=== PATIENT | female | born 1965 | race Caucasian/White ===

== ENCOUNTER 2023-04-05 10:56 | Outpatient (AMB) | payer OTHER, SELFPAY ==
--- NOTE | 2023-04-05 10:57 | A.OFFVIS_ITS ---
Intake Vital Signs 04/05/23 11:00 Weight 246 lb 7.629 oz BP 146/82 H Blood Pressure Location Lt brachial Position Sitting Pulse 88 Pulse Source Pulse Oximeter Intake Visit Reasons: DM2 Intake Note: New patient present today for Diabetes Mellitus. Previously managed by PCP. Last Diabetic Eye exam: 08/1021 Last Podiatry Visit: 03/2023 Random Glucose: 192mg/dl HgA1C: 8.7% Gasoline Attendant Required: No Accompanied by: Self / Same As Patient Allergies gluten Adverse Reaction (Unknown, Verified 04/05/23 11:02) Diarrhea, stomach bloating Medication List - Last Reconciled 04/05/23 by Donald Goldstein MD atorvastatin 20 mg PO DAILY cholecalciferol (vitamin D3) 50,000 mcg PO .week glimepiride 2 mg PO DAILY insulin glargine (Lantus Solostar U-100 Insulin) 52 units subcut BID metformin 1,000 mg PO BID valsartan 320 mg PO DAILY HPI HPI Comments History of Present Illness Details 57 YO F who is seen in consultation for T2DM at the request of PCP. Initially diagnosed with T2DM in 7 yrs . Saw endo at [facility] Dr. Cook Was initially started on treatment with metformin .Took Trulicity and had diaarhea Current regimen . metformin 1000 mg BID Victoza ran out of prescription glimeprimide 2mg BID Lantus 52 units Humalog correctiion scale 3 X/day Was unable to download glucometer but point cares are being checked twice a day with generally point cares in the high 100s to mid 200s in the morning and mid 200s to mid 300s in the evening Reports low sugars No . Most recent A1C 8.7 , Family history of T2DM in brother and grandmother . Has eyes checked yearly, last eye exam 08/2021 needs appt , denies retinopathy. Denies neuropathy, sees podiatry. Denies nephropathy, on ALEXANDRA/ARB. Has HLD, on statin. Denies CAD. Not Had diabetes education. [facility] Medical History (Updated 04/05/23 @ 11:11 by Donald Goldstein MD) Uncontrolled type 2 diabetes mellitus with hyperglycemia Surgical History (Updated 04/02/23 @ 10:46 by SERA Davis) History of colonoscopy Hx of surgical fusion joint Family History (Updated 04/02/23 @ 11:02 by SERA Davis) Mother Hypothyroidism Father Murmur Pacemaker Social History (Updated 04/02/23 @ 11:03 by SERA Davis) Alcohol intake: current Alcohol intake frequency: holidays/special occasions only Patient Tobacco Use Status: Former Tobacco user Quit Date: 05/15/2021 Physical Exam Absence of Cushingoid features. Absence of acromegalic features. Neck exam reveals nl size thyroid about 15 gms. No thyroid nodules palpable. No carotid bruits present. Lungs CTA. Heart S1 S2, Reg R/R. No M/R/ G. Skin exam reveals absence of vitiligo or acanthosis nigricans. Abdominal exam reveals Soft NT/ND with NA BS. No organomegaly present. Neck Other: . Extrem Other: Visual exam of foot performed. No ulcerations or open lesions. No onchomycosis, no callouses.Pulses 2 + distally Sensation intact to monofilament exam. Vibratory sensation sensed is intact with 128 Hz tuning fork Results AMB Hemoglobin A1c AMB Hemoglobin A1c 8.7 % Last Edit by Lesia Robbins on 04/05/23 11:24 Assessment & Plan Assessment & Plan (1) Uncontrolled type 2 diabetes mellitus with hyperglycemia: Code(s): E11.65 - Type 2 diabetes mellitus with hyperglycemia Plan: Is a 57-year-old white female with a history of type 2 diabetes being treated with metformin, glimepiride and basal insulin with poor glycemic control and no known microvascular or macrovascular complications. Plan is to have the patient check her point cares pre and post meals. Will try to prescribe a Nicole 3 patient as pt uses 4 injections of insulin per day. Will start Mounjaro 2.5 mg with titration of doses patient tolerates. Patient has already tried and failed Victoza and Trulickaley told patient to report any hypoglycemia so we can adjust her glimepiride and insulin.. Will set up appointment with crane operator cab and desktop analyst. Went over the relationship of poor glycemic control to development of progression of complications Mounjaro 2.5 mg samples given to patient lot number [id number] expiration date 08/30/2024 Orders: Orders AMB Hemoglobin A1c Today E11.65 - Type 2 diabetes mellitus with hyperglycemia Referrals Diabetes Education Referral E11.65 - Type 2 diabetes mellitus with hyperglycemia Nutrition/Dietitian Referral E11.65 - Type 2 diabetes mellitus with hyperglycemia Medications: New blood-glucose sensor (FreeStyle Nicole 3 Sensor device) As directed change every 14 days 2 ea 5RF tirzepatide (Mounjaro) 5 mg (0.5 mL) subcut QWEEK 2 mL 5RF Coding Level of Care Code New Pt Level 5 (89167) Diagnoses Uncontrolled type 2 diabetes mellitus with hyperglycemia E11.65 Time Spent (min) 60 Comment Total of 60 minutes was spent reviewing chart, seeing patient, and dictating
[2023-04-05 11:00] VITALS: BP 146/82; PULSE 88
[2023-04-05 11:19] LABS: Glucose, Whole Blood 192 mg/dL (60-115)
== END 2023-04-05 12:11 | disposition home or self-care (01) ==
PROVIDERS: PCP Nurse Practitioner Adult Health; Referring Provider Nurse Practitioner Adult Health; Visit Provider Internal Medicine Endocrinology, Diabetes & Metabolism
DX: E11.65 Type 2 diabetes mellitus with hyperglycemia (principal)
CPT/HCPCS: 99205

== ENCOUNTER → 2023-04-05 10:56 | Outpatient (BNVA) | payer OTHER, SELFPAY | PROVIDERS: Visit Provider Internal Medicine Endocrinology, Diabetes & Metabolism | DX: E11.65 Type 2 diabetes mellitus with hyperglycemia (principal); Z83.3 Family history of diabetes mellitus; Z79.4 Long term (current) use of insulin; E78.5 Hyperlipidemia, unspecified; Z79.899 Other long term (current) drug therapy | CPT/HCPCS: 82947; 83036 ==

== ENCOUNTER 2023-04-20 08:21 | Outpatient (AMB) | payer OTHER, SELFPAY ==
--- NOTE | 2023-04-20 09:23 | MHC.AMDMED ---
Intake Intake Visit Reasons: f/u Type 2 DM Emergency Medical Service Manager Required: No Accompanied by: Self / Same As Patient Allergies gluten Adverse Reaction (Unknown, Verified 04/05/23 11:02) Diarrhea, stomach bloating HPI Comprehensive Diabetes Asmnt Most Recent Diabetes Results: No Data to Display [facility] Medical History (Updated 04/05/23 @ 11:11 by Donald Goldstein MD) Uncontrolled type 2 diabetes mellitus with hyperglycemia Surgical History History of colonoscopy Hx of surgical fusion joint Family History Mother Hypothyroidism Father Murmur Pacemaker Social History Alcohol intake: current Alcohol intake frequency: holidays/special occasions only Patient Tobacco Use Status: Former Tobacco user Quit Date: 05/15/2021 Assessment & Plan Assessment & Plan (1) Uncontrolled type 2 diabetes mellitus with hyperglycemia: Code(s): E11.65 - Type 2 diabetes mellitus with hyperglycemia Plan: Diabetes self-management education and support participation record Assessment/scale: 1= needs instructed? 2= needs review? 3= comprehend keep point? 4= demonstrates understanding/ competent? NC= Not Covered Topics Learning Objective: Initial visit Initial or post srvc Initial or post srvc Initial or post srvc Initial or post srvc Initial or post srvc Post srvc Comments Pre Edu-assessment/plan Outcome or reassess Outcome or reassess Outcome or reassess Outcome or reassess Outcome or reassess Outcome or reassess Diabetes pathophysiology 1 Healthy eating 2 Pt is Gluten free Being active Taking medication 1 Monitoring glucose 2 Acute complication Chronic complicated Lifestyle and healthy coping Diabetes distress in support ?Diabetes pathophysiology: ?Defined diabetes med identify own type of diabetes; list 3 options for treating diabetes Healthy eating: ?Described effect of type, amount and ?timing of food on blood glucose; list 3 methods for planning meal Being active: ?State effect of exercise on blood glucose level Taking medication: ?State effect of diabetes medications on diabetes; name diabetes medications taking, action and side effects Monitoring glucose: ?Identify recommended blood glucose targets and personal target Acute complication: ?List symptoms and treatment of hyper and hypoglycemia, DKA, sick day guidelines and guidelines for severe weather or situations of crisis and diabetes supply manage Chronic complication: ?To find the relationship of blood glucose levels to long-term complications of diabetes in screening and preventative measures Lifestyle and healthy coping: ?Described lifestyle and healthy coping strategies to rule out diabetes self-management Diabetes to stress and support: ?Recognize Diabetes to stress and be able to identified support options Learning objectives: The patient was provided with verbal and written education on the following topics as outlined below. The patient met all learning objectives and was able to verbalize understanding and provide teach back of education topics discussed . The patient was provided with the opportunity to ask questions and all questions were answered. Patient Assessment Assess patient education level/literacy/barriers Patient questions/concerns, patient diagnosed with type 2 diabetes 2015. Last A1c 8.7% on 04/05/2023. What is Diabetes? Pathophysiology How the body produces and uses insulin Identify type of DM Risk factors Signs of Diabetes Brief overview of Diabetes Management Monitoring blood sugar Following a meal plan Regular exercise Maintaining a healthy weight Taking medication as needed Members of the care team (PCP, RN, MA, RD, CDE, umbrella tipper machine) Blood glucose monitoring When/how often to test Target blood sugar ranges Patient using Nicole 3 sensor Average glucose for the past 2 weeks 165 mg/dL 33% above target 66% at target 1% below target Introduction to Nutrition Importance of healthy diet in managing DM Diet is personalized to individual preference Review patient?s regular diet/food preferences Who prepares meals/does food shopping/ Dining out?/ Barriers? How diet effects glucose Eating 3 balanced meals a day with small, healthy snacks between meals Review food groups Carbohydrates: What is a carbohydrate/Which food/food groups are considered carbohydrates Effect of carbohydrates on blood glucose Portion sizes Reading food labels Basic carb counting (if applicable per nursing assessment) Plate method Meal planning Recommendations: Follow plate method, consistent carbs and read nutritional labels. Smart Goal: Patient will keep meals 30-45 g of carbohydrate Educational Materials: The patient was provided with the following written educational materials: Planning Healthy Meals Handout Patient Response to instructions: Comprehension of Instructions: good Readiness to make changes: Contemplation How confident they feel about making changes: Positive . Patient Instructions: Test blood sugar as directed; Fasting and 2hpp largest meal. Watch trends in results. Utilize results and to assess how food, physical activity and medications affect blood sugar results. Bring glucometer or CGM to next visit. Be knowledgeable about diabetes medication, its action, side effects, efficacy, toxicity, prescribed dosage, appropriate timing and frequency of administration, effect of missed and delayed doses and instructions for storage, travel and safety. Patient will be participating in Diabetes Education classes Coding Level of Care Code Est Pt Level 1 (59670) Diagnoses Uncontrolled type 2 diabetes mellitus with hyperglycemia E11.65
== END 2023-04-20 10:43 | disposition home or self-care (01) ==
PROVIDERS: PCP Nurse Practitioner Adult Health; Visit Provider Registered Nurse Diabetes Educator
DX: E11.65 Type 2 diabetes mellitus with hyperglycemia (principal)

== ENCOUNTER → 2023-04-20 08:21 | Outpatient (BNVA) | payer OTHER, SELFPAY | PROVIDERS: PCP Nurse Practitioner Adult Health; Visit Provider Registered Nurse Diabetes Educator | DX: E11.65 Type 2 diabetes mellitus with hyperglycemia (principal) | CPT/HCPCS: 99211 ==

== ENCOUNTER 2023-05-03 09:15 | Outpatient (AMB) | payer OTHER, SELFPAY ==
--- NOTE | 2023-05-03 12:28 | A.OFFVIS_ITS ---
Intake Intake Visit Reasons: dm Allergies gluten Adverse Reaction (Unknown, Verified 04/05/23 11:02) Diarrhea, stomach bloating HPI Comprehensive Diabetes Asmnt Most Recent Diabetes Results: No Data to Display [facility] Medical History (Updated 04/05/23 @ 11:11 by Donald Goldstein MD) Uncontrolled type 2 diabetes mellitus with hyperglycemia Surgical History History of colonoscopy Hx of surgical fusion joint Family History Mother Hypothyroidism Father Murmur Pacemaker Social History Alcohol intake: current Alcohol intake frequency: holidays/special occasions only Patient Tobacco Use Status: Former Tobacco user Quit Date: 05/15/2021 Assessment & Plan Assessment & Plan (1) Uncontrolled type 2 diabetes mellitus with hyperglycemia: Code(s): E11.65 - Type 2 diabetes mellitus with hyperglycemia Plan: Class 1 DIABETES: CLASS? Your Journey with Diabetes ? Pre and Post class survey Your Journey with Diabetes ? 1=I needs full instruction?? 2= I Need Some Review? 3= I Understand Topics?? Before Class After Class 1-2 What is diabetes? Can you define in your own words 3 1-2 Blood glucose within the target range 3 2 The potential long-term complications of diabetes 3 2 Reduce the risk of long-term complications by keeping your blood glucose on target 3 2 Knowing your ABCs 3 2 Identifying Support Network 3 Patient was education on the prevention of and monitoring of potential complications of diabetes. Topics covered in today?s session included: . Definition of types of Diabetes ? Natural course of diabetes. ? Detecting and prevention of chronic complications. ? Knowing ABC's of diabetes management and reducing risk for cardiovascular complications. ? Reviewed support network and services. Patient was supplied with CDC ABC checklist Patient was receptive to information provided and participated in the group discussion. Patient asked?appropriate questions and demonstrated good understanding of the topics discussed.? Reviewed how to create smart goal, patient will follow-up with new smart goal at next class Patient was educated on diabetes care and skills according to the Standards of Care established by the [place] [employer] Coding Level of Care Code Tele Est Pt Level 1 (83640) Diagnoses Uncontrolled type 2 diabetes mellitus with hyperglycemia E11.65
== END 2023-05-03 12:58 | disposition home or self-care (01) ==
PROVIDERS: PCP Nurse Practitioner Adult Health; Visit Provider Registered Nurse Diabetes Educator
DX: E11.65 Type 2 diabetes mellitus with hyperglycemia (principal)
CPT/HCPCS: 99211

== ENCOUNTER → 2023-05-03 09:15 | Outpatient (BNVA) | payer OTHER, SELFPAY | PROVIDERS: PCP Nurse Practitioner Adult Health; Visit Provider Registered Nurse Diabetes Educator ==

== ENCOUNTER 2023-05-10 09:28 | Outpatient (AMB) | payer OTHER, SELFPAY ==
--- NOTE | 2023-05-10 11:12 | A.OFFVIS_ITS ---
Intake Intake Visit Reasons: dm/lvm Allergies gluten Adverse Reaction (Unknown, Verified 04/05/23 11:02) Diarrhea, stomach bloating HPI Nutrition Presentation Details Pt presented for MNT Group Education for T2DM. Most Recent Diabetes Results: No Data to Display [facility] Medical History (Updated 04/05/23 @ 11:11 by Donald Goldstein MD) Uncontrolled type 2 diabetes mellitus with hyperglycemia Surgical History History of colonoscopy Hx of surgical fusion joint Family History Mother Hypothyroidism Father Murmur Pacemaker Social History Alcohol intake: current Alcohol intake frequency: holidays/special occasions only Patient Tobacco Use Status: Former Tobacco user Quit Date: 05/15/2021 Assessment & Plan Assessment & Plan (1) Uncontrolled type 2 diabetes mellitus with hyperglycemia: Code(s): E11.65 - Type 2 diabetes mellitus with hyperglycemia Plan: Pt presented for MNT DM Group Education. Pt participated with questions relevant to the topics discussed. Pt needs individual visits related to food allergies and discuss individual meal planning. Class 2: Diabetes and Healthy Eating Assessment Diabetes and Healthy Eating 1=I needs full instruction ? 2= I Need Some Review? 3= I Understand Topics??? Before Class After Class 1-2 The relationship between your blood glucose and the food you eat 2-3 1-2 The nutrients that make up food 3 1-2 How what you eat, portion size, and when you eat can affect your blood glucose 3 1-2 Healthy eating and meal planning strategies 3 1-2 How the feelings you have can influence your choices about food and eating 3 1-2 How to select and implement SMART Goal 3 SMART Goal selected: healthy eating follow healthy plate method at dinner 3 times w week Patient Instructions: Nutrition education topics discussed were as followed: * Described the healthy plate method, purpose of the healthy plate method. * Role of carbohydrates, fiber,protein and nonstarchy vegetables in relation to blood glucose and overall health * Carbohydrate sources of foods and amount of carbohydrates per serving size * Relationship of carbohydrates to blood glucose * Food sources of protein and low-fat sources of protein * Differences between starchy vegetables and non starchy vegetables and how to incorporate this following the healthy plate method Written information with above topics and meal planning ideas were provided for reference. Pt will meet individually for additional questions in meal planning and discuss food allergies Coding Level of Care Code Nutr Indiv Intake (32312) Diagnoses Uncontrolled type 2 diabetes mellitus with hyperglycemia E11.65 Time Spent (min) 120 Comment This was group education for DM /MNT [id number]
== END 2023-05-10 11:06 | disposition home or self-care (01) ==
PROVIDERS: PCP Nurse Practitioner Adult Health; Visit Provider Dietitian, Registered
DX: E11.65 Type 2 diabetes mellitus with hyperglycemia (principal)

== ENCOUNTER → 2023-05-10 09:28 | Outpatient (BNVA) | payer OTHER, SELFPAY | PROVIDERS: PCP Nurse Practitioner Adult Health; Visit Provider Dietitian, Registered | DX: E11.65 Type 2 diabetes mellitus with hyperglycemia (principal); Z71.3 Dietary counseling and surveillance | CPT/HCPCS: 97802 ==

== ENCOUNTER 2023-06-05 15:17 | Outpatient (AMB) | payer OTHER, SELFPAY ==
[2023-06-05 15:26] VITALS: BP 106/70; PULSE 122; BMI 44.8
--- NOTE | 2023-06-05 15:26 | MHC.OFFVIS ---
Intake Vital Signs 06/05/23 15:26 06/05/23 15:29 Height 5 ft 2 in 5 ft 2 in Weight 245 lb 2.464 oz BMI 44.8 BP 106/70 Blood Pressure Location Lt brachial Position Sitting Pulse 122 H Pulse Source Pulse Oximeter Intake Visit Reasons: f/u Type 2 DM, appt confirmed Intake Note: Patient present today to follow up on Type 2 Diabetes Mellitus. Patient receives DME supplies through: Pharmacy Last Diabetic Eye exam: 2021 Last Podiatry Visit: 02/2023 Random Glucose: 155 mg/dl HgA1C: 8.7% 04/05/2023 Salesperson Wigs Required: No Accompanied by: Self / Same As Patient Allergies gluten Adverse Reaction (Unknown, Verified 06/05/23 15:33) Diarrhea, stomach bloating Medication List - Last Reconciled 06/05/23 by Donald Goldstein MD atorvastatin 20 mg PO DAILY blood-glucose sensor (FreeStyle Nicole 3 Sensor device) As directed change every 14 days cholecalciferol (vitamin D3) 50,000 mcg PO .week glimepiride 2 mg PO DAILY insulin glargine (Lantus Solostar U-100 Insulin) 52 units subcut BID metformin 1,000 mg PO BID semaglutide (Ozempic) 0.25 mg (0.368 mL) subcut QWEEK valsartan 320 mg PO DAILY HPI HPI Comments History of Present Illness Details 57 YO F who is seen in consultation for T2DM at the request of PCP. Initially diagnosed with T2DM in 7 yrs . Saw navi at [facility] Dr. Cook Was initially started on treatment with metformin .Took Trulicity and had diaarhea Current regimen . metformin 1000 mg BID Ozempic 0.25 mg Qwkly couldn't tolerate Taking Mounjaro 2.5 mg qwkly glimeprimide 2mg QD Lantus 50 units Humalog correctiion scale 3 X/day Nicole download shows she is using the sensor 98% of the time. Average glucose is 158 with G mi of 7.1% and variability of 24.4% glucose is in target range 74% of the time with 26% hyperglycemia and no hypoglycemia Reports low sugars rarely . Most recent A1C 8.7 , Family history of T2DM in brother and grandmother . Has eyes checked yearly, last eye exam needs appt , denies retinopathy. Denies neuropathy, sees podiatry. Denies nephropathy, on ALEXANDRA/ARB. Has HLD, on statin. Denies CAD. Not Had diabetes education. REPLACED BY [facility] Medical History (Updated 04/05/23 @ 11:11 by Donald Goldstein MD) Uncontrolled type 2 diabetes mellitus with hyperglycemia Surgical History Hx of surgical fusion joint History of colonoscopy Family History Mother Hypothyroidism Father Murmur Pacemaker Social History Alcohol intake: current Alcohol intake frequency: holidays/special occasions only Patient Tobacco Use Status: Former Tobacco user Quit Date: 05/15/2021 Physical Exam Vital Signs: Last Vital Signs Pulse 122 H 06/05/23 15:26 BP 106/70 06/05/23 15:26 BMI result Body Mass Index 44.8 Absence of Cushingoid features. Absence of acromegalic features. Neck exam reveals nl size thyroid about 15 gms. No thyroid nodules palpable. No carotid bruits present. Lungs CTA. Heart S1 S2, Reg R/R. No M/R/ G. Skin exam reveals absence of vitiligo or acanthosis nigricans. Abdominal exam reveals Soft NT/ND with NA BS. No organomegaly present. Neck Other: . Extrem Other: Visual exam of foot performed. No ulcerations or open lesions. No onchomycosis, no callouses.Pulses 2 + distally Sensation intact to monofilament exam. Vibratory sensation sensed is intact with 128 Hz tuning fork Results Reviewed Results Reviewed: 06/05/23 15:34 Glucose, Whole Blood Routine Laboratory Last Values Glucose (Clinic) 155 mg/dL (60-115) H 06/05/23 15:34 Assessment & Plan Assessment & Plan (1) Uncontrolled type 2 diabetes mellitus with hyperglycemia: Code(s): E11.65 - Type 2 diabetes mellitus with hyperglycemia Plan: Is a 57-year-old white female with a history of type 2 diabetes being treated with metformin, Ozempic, glimepiride and basal insulin with improved good glycemic control and no known microvascular or macrovascular complications. Plan is to start Mounjaro 2.5 mg Qwkly and titrate as tolerated. Patient could not tolerate 3 G LP s including Victoza, Trulicity and Ozempic. She should follow-up with the neurology teacher. She should also report any hypoglycemia for adjustment of insulin. Will also have patient stop glimepiride Mounjaro 2.5 mg samples given to patient lot number [id number] expiration 08/31/2024 Medications: New tirzepatide (Mounjaro) 5 mg (0.5 mL) subcut QWEEK 2 mL 4RF Discontinued semaglutide (Ozempic) for 4 weeks Discontinued Reason: Doctor's Order 0.25 mg (0.368 mL) subcut QWEEK 3 mL 4RF Coding Level of Care Code Est Pt Level 4 (69929) Diagnoses Uncontrolled type 2 diabetes mellitus with hyperglycemia E11.65
== END 2023-06-05 16:08 | disposition home or self-care (01) ==
PROVIDERS: PCP Nurse Practitioner Adult Health; Visit Provider Internal Medicine Endocrinology, Diabetes & Metabolism
DX: E11.65 Type 2 diabetes mellitus with hyperglycemia (principal)
CPT/HCPCS: 99214

== ENCOUNTER → 2023-06-05 15:17 | Outpatient (BNVA) | payer OTHER, SELFPAY | PROVIDERS: PCP Nurse Practitioner Adult Health; Visit Provider Internal Medicine Endocrinology, Diabetes & Metabolism | DX: E11.65 Type 2 diabetes mellitus with hyperglycemia (principal); Z79.4 Long term (current) use of insulin | CPT/HCPCS: 82947 ==

== ENCOUNTER 2023-06-12 13:02 | Outpatient (AMB) | payer OTHER, SELFPAY ==
[2023-06-12 13:47] VITALS: BP 132/80; PULSE 92; TEMP 36.8; O2SAT 96; BMI 45.2
--- NOTE | 2023-06-12 13:47 | MHC.OFFWIV ---
Intake Vital Signs 06/12/23 13:47 Height 5 ft 2 in Weight 247 lb BMI 45.2 BP 132/80 Blood Pressure Location Rt brachial Position Sitting Pulse 92 Pulse Source Pulse Oximeter Temp 98.3 F Temp Source Temporal Artery Scan Pulse Oximetry (%) 96 Intake Visit Reasons: BED TEACHER Sore Throat, Cough, Nasal Drip (masked) Intake Note: pt is here for c/o sore throat, post nasal drip and cough Patient Tobacco Use Status: Former Tobacco user Quit Date: 05/15/2021 Allergies gluten Adverse Reaction (Unknown, Verified 06/12/23 13:47) Diarrhea, stomach bloating Do you need a note to return to daycare/school/sports/work: Yes HPI HPI Comments History of Present Illness Details This is a 57-year-old female with a past medical history of insulin-dependent diabetes, hypertension, hyperlipidemia and seasonal allergies not currently treated presenting for evaluation of a scratchy throat, sinus pressure and chills that she has had for the past 4 days. Patient denies having any hyperglycemia, fevers, chills, ear pain, dental pain, cough or shortness of breath. Patient has not taken any medication for treatment of her symptoms. [facility] Medical History Uncontrolled type 2 diabetes mellitus with hyperglycemia Surgical History Hx of surgical fusion joint History of colonoscopy Family History Mother Hypothyroidism Father Murmur Pacemaker Social History Alcohol intake: current Alcohol intake frequency: holidays/special occasions only Patient Tobacco Use Status: Former Tobacco user Quit Date: 05/15/2021 Review of Systems Const Denies body aches, Denies chills, Denies fatigue, Denies fever(s), Reports lethargy and Denies malaise Eyes Reports no additional complaints ENT Denies otalgia, Denies nasal congestion, Denies sinus pain and Reports sore throat Card Reports no additional complaints Resp Reports no additional complaints Musc Reports no additional complaints Endo Reports no additional complaints and Denies fatigue Mike/Lymph Reports no additional complaints Physical Exam Vital Signs: Last Vital Signs Temp 98.3 F 06/12/23 13:47 Pulse 92 10/17/23 13:47 BP 132/80 06/12/23 13:47 Pulse Ox 96 06/12/23 13:47 BMI result Body Mass Index 45.2 Const General: cooperative, healthy appearing, comfortable, no acute distress and well developed Nutritional Appearance: overweight Orientation/consciousness: patient oriented x3 Limitations: no limitations HEENT Head: Yes normal to inspection Ears: hearing grossly normal bilaterally, TM's normal bilaterally and EAC's normal General nose exam: Normal external nose present Face and sinus: Yes normal facial exam Mouth: Normal oral and palatal mucosa present and moist mucous membranes Teeth and gingiva: dentition normal Throat: Yes uvula midline and Yes postnasal drainage Eyes Conjunctivae: conjunctivae normal Sclerae: sclerae normal Neck Lymphatic: no lymphadenopathy noted Resp Other: No tachypnea Effort & Inspection: normal respiratory effort, able to speak in complete sentences, no cough, no respiratory distress and not tachypneic Auscultation: clear to auscultation bilaterally Cardio Rate: regular rate Rhythm: regular rhythm Heart sounds: Murmur heart sound present Neuro General: patient oriented x3 Psych Appearance: grossly normal Mental Status: mental status grossly normal Insight: Good insight present (Psych) Judgement: Good judgement present (Psych) Results Reviewed Results Reviewed: Negative rapid strep test reviewed with the patient. Assessment & Plan Assessment & Plan (1) Acute pharyngitis: Comment: patient will re-initiate antihistamine use which she used to take for her seasonal allergies. Code(s): J02.9 - Acute pharyngitis, unspecified (2) Allergic sinusitis: Code(s): J30.9 - Allergic rhinitis, unspecified Coding Level of Care Code Est Pt Level 3 (89560) Diagnoses Acute pharyngitis J02.9 Allergic sinusitis J30.9 Time Spent (min) 20
== END 2023-06-12 14:28 | disposition home or self-care (01) ==
PROVIDERS: PCP Nurse Practitioner Adult Health
DX: J02.9 Acute pharyngitis, unspecified (principal); J30.9 Allergic rhinitis, unspecified
CPT/HCPCS: 87880; 99213

== ENCOUNTER 2023-06-18 08:12 | Outpatient (AMB) | payer OTHER, SELFPAY ==
[2023-06-18 08:47] VITALS: BP 150/88; PULSE 95; TEMP 36.2; O2SAT 99; BMI 43.5
--- NOTE | 2023-06-18 08:47 | AM.OFFWIN_ITS ---
Intake Vital Signs 06/18/23 08:47 Height 5 ft 2 in Weight 238 lb BMI 43.5 BP 150/88 H Blood Pressure Location Lt brachial Position Sitting Pulse 95 Pulse Source Pulse Oximeter Temp 97.2 F Pulse Oximetry (%) 99 Oxygen Delivery Method Room Air Intake Visit Reasons: EP ?Sinus infection (lobby)- masked Intake Note: pt is here today for sinus infection Patient Tobacco Use Status: Former Tobacco user Quit Date: 05/15/2021 Allergies gluten Adverse Reaction (Unknown, Verified 06/18/23 09:18) Diarrhea, stomach bloating Medication List - Last Reconciled 06/18/23 by Alok Jeffrey MD atorvastatin 20 mg PO DAILY blood-glucose sensor (FreeStyle Nicole 3 Sensor device) As directed change every 14 days cholecalciferol (vitamin D3) 50,000 mcg PO .week glimepiride 2 mg PO DAILY insulin glargine (Lantus Solostar U-100 Insulin) 52 units subcut BID metformin 1,000 mg PO BID tirzepatide (Mounjaro) 5 mg (0.5 mL) subcut QWEEK valsartan 320 mg PO DAILY HPI EP ?Sinus infection (lobby)- masked HPI Details Patient presents for a sick visit. Reporting symptoms of sinus congestion, sore throat and difficulty swallowing. Low-grade fever. No family member is sick. No recent travel. Patient reports symptoms of malaise and fatigue. [facility] Medical History Uncontrolled type 2 diabetes mellitus with hyperglycemia Surgical History Hx of surgical fusion joint History of colonoscopy Family History Mother Hypothyroidism Father Murmur Pacemaker Social History Alcohol intake: current Alcohol intake frequency: holidays/special occasions only Patient Tobacco Use Status: Former Tobacco user Quit Date: 05/15/2021 Physical Exam Vital Signs: Last Vital Signs Temp 97.2 F 06/18/23 08:47 Pulse 95 06/18/23 08:47 BP 150/88 H 06/18/23 08:47 Pulse Ox 99 06/18/23 08:47 Oxygen Delivery Method Room Air 06/18/23 08:47 BMI result Body Mass Index 43.5 Const General: cooperative and healthy appearing Nutritional Appearance: well nourished Orientation/consciousness: patient oriented x3 Limitations: no limitations HEENT Head: Yes normal to inspection Eyes General: appearance normal, both eyes and all related structures Neck Neck: Yes normal visual inspection Chest Chest palpation & inspection: normal palpation of entire chest wall Resp Effort & Inspection: normal respiratory effort Neuro General: patient oriented x3 Assessment & Plan Assessment & Plan (1) Upper respiratory tract infection: Code(s): J06.9 - Acute upper respiratory infection, unspecified Plan: Antibiotics ordered. Increase fluid intake. Tylenol for aches and pains. If symptoms worsen, follow-up here for a recheck. Coding Level of Care Code Est Pt Level 3 (05293) Diagnoses Upper respiratory tract infection J06.9
== END 2023-06-18 09:34 | disposition home or self-care (01) ==
PROVIDERS: PCP Nurse Practitioner Adult Health; Visit Provider Internal Medicine
DX: J06.9 Acute upper respiratory infection, unspecified (principal)
CPT/HCPCS: 99213

== ENCOUNTER 2023-07-12 09:43 | Outpatient (AMB) | payer OTHER, SELFPAY ==
--- NOTE | 2023-07-12 12:00 | A.OFFVIS_ITS ---
Intake VS Expanded 07/12/23 12:08 Height 5 ft 2 in Weight 238 lb 3 oz BMI 43.6 Intake Visit Reasons: DM Allergies gluten Adverse Reaction (Unknown, Verified 06/18/23 09:18) Diarrhea, stomach bloating HPI Nutrition Presentation Details Pt presents for MNT for T2DM Today will review nutrition session related to differences in fats and low sodium food concepts Pt reports doing well, working on meal planning [id number].Vipulor Equation Height 5 ft 2 in Weight 238 lb Resting Metabolic Rate 1606.52 Calculated Activity Level Sedentary Calories Needed to Maintain Weight 1927.82 Diagnosis Nutrition problem #1 food nutri know defi As related to (etiology) #1 diagnosis As evidenced by (sign/symptom) #1 knowledge deficit of diet Monitoring/Goals Nutrition problem monitoring level of knowledge/skill Nutrition goal/outcome list 3 high Na+ foods Most Recent Diabetes Results: No Data to Display [facility] Medical History Uncontrolled type 2 diabetes mellitus with hyperglycemia Surgical History Hx of surgical fusion joint History of colonoscopy Family History Mother Hypothyroidism Father Murmur Pacemaker Social History Alcohol intake: current Alcohol intake frequency: holidays/special occasions only Patient Tobacco Use Status: Former Tobacco user Quit Date: 05/15/2021 Assessment & Plan Assessment & Plan (1) Uncontrolled type 2 diabetes mellitus with hyperglycemia: Code(s): E11.65 - Type 2 diabetes mellitus with hyperglycemia Plan: wt: 108 kg Est kcal needs as per MSJ: 1900 (40% carb, 30% protein/fat) Est fluid needs as per 25-30 ml/d: 2700- 3200 Est prot per day as per 1 g/kg bw: 108 g Recommend fiber intake : 8-10 g per day and gradually increase to 25-28 g per day for women and 35-38 g for men or as tolerated Recommend sodium intake per day : less than 2000 mg Educated patient on: ( R = reviewed V = verbalizes understanding N/R = needs review N/A = not applicable * * Differences between types of fats and role in diet (mono on saturated fat fatty acids, saturated fatty acids, trans fats): R V * Food sources of sodium in salt and healthy modifications for heart health in kidney health: R * Healthy plate method concept: R V * Physical activity: Benefits a precaution: R * BG goal (FBG 80-130 and 2 hours after any meal 80-180 unless otherwise specified by your doctor) Patient Instructions: Continue working on following healthy plate method Choose low sodium food options and include foods sources of omega 3 daily (nu ts/seeds, fish ) see low sodium/differences in fats education material provided as reference Coding Level of Care Code Nutr Indiv Subseq (48965) Diagnoses Uncontrolled type 2 diabetes mellitus with hyperglycemia E11.65 Time Spent (min) 30
[2023-07-12 12:08] VITALS: BMI 43.6
[2023-07-12 13:11] VITALS: BMI 43.5
== END 2023-07-12 12:05 | disposition home or self-care (01) ==
PROVIDERS: PCP Nurse Practitioner Adult Health; Visit Provider Dietitian, Registered
DX: E11.65 Type 2 diabetes mellitus with hyperglycemia (principal)

== ENCOUNTER 2023-07-12 09:43 | Outpatient (AMB) | payer OTHER, SELFPAY ==
--- NOTE | 2023-07-12 11:22 | A.OFFVIS_ITS ---
Intake Intake Visit Reasons: DM Education Allergies gluten Adverse Reaction (Unknown, Verified 06/18/23 09:18) Diarrhea, stomach bloating HPI Comprehensive Diabetes Asmnt Most Recent Diabetes Results: No Data to Display [facility] Medical History Uncontrolled type 2 diabetes mellitus with hyperglycemia Surgical History Hx of surgical fusion joint History of colonoscopy Family History Mother Hypothyroidism Father Murmur Pacemaker Social History Alcohol intake: current Alcohol intake frequency: holidays/special occasions only Patient Tobacco Use Status: Former Tobacco user Quit Date: 05/15/2021 Assessment & Plan Assessment & Plan (1) Uncontrolled type 2 diabetes mellitus with hyperglycemia: Code(s): E11.65 - Type 2 diabetes mellitus with hyperglycemia Plan: DIABETES CLASS 3? Monitoring your Blood Glucose Pre and Post Class Survey Monitoring your blood glucose 1=I needs full instruction?? 2= I Need Some Review? 3= I Understand Topics?? Before Class After Class 2 Review of blood glucose and insulin 3 2 Blood glucose targets and how you feel when your blood glucose is in and out of the target ranges 2 1 Monitoring and knowing your A1c 3 2 What can make your blood glucose go up and down and preventing high and low blood glucose 3 1 Using your glucose results to manage your diabetes 3 Topics covered in today?s session included: ? What blood glucose and insulin are. ? Blood glucose targets and how you feel when your blood glucose is in and out of your target ranges. ? Monitoring and knowing your A1C. ? What can make blood glucose go up and down and preventing high and low blood glucose. ? Review of blood sugar targets in expected goal range and outside of expected goal range. ? Problem solving and preventing hyper/hypoglycemia. ? Sick day management of diabetes. ? Using blood sugar results in decision making process in managing diabetes. Patient was receptive to information provided and participated in the group discussion. Patient asked?appropriate questions and demonstrated good understanding of the topics discussed.? Reviewed patient Smart Goal: SMART Goal: Making healthier food choices at Dinner 3 times a week Patient found goals realistic and agreed to DM plan. Patient was educated on diabetes care and skills according to the Standards of Care established by the [place] [employer] Coding Level of Care Code Est Pt Level 1 (22096) Diagnoses Uncontrolled type 2 diabetes mellitus with hyperglycemia E11.65
== END 2023-07-12 12:02 | disposition home or self-care (01) ==
PROVIDERS: PCP Nurse Practitioner Adult Health; Visit Provider Registered Nurse Diabetes Educator
DX: E11.65 Type 2 diabetes mellitus with hyperglycemia (principal)

== ENCOUNTER → 2023-07-12 09:43 | Outpatient (BNVA) | payer OTHER, SELFPAY | PROVIDERS: PCP Nurse Practitioner Adult Health; Visit Provider Dietitian, Registered | DX: E11.65 Type 2 diabetes mellitus with hyperglycemia (principal); Z71.3 Dietary counseling and surveillance | CPT/HCPCS: 97803; 99211 ==

== ENCOUNTER 2023-07-13 10:42 | Outpatient (REF) | payer OTHER, SELFPAY ==
[2023-07-13 14:15] LABS: Estimated Average Glucose 169 mg/dL; Hemoglobin A1c % 7.5 % (<6.0)
== END 2023-07-13 10:43 | disposition home or self-care (01) ==
LOC: HO.HMGCLDS 10:42
PROVIDERS: Visit Provider Internal Medicine Endocrinology, Diabetes & Metabolism
DX: E11.65 Type 2 diabetes mellitus with hyperglycemia (principal)
CPT/HCPCS: 36415; 83036

== ENCOUNTER 2023-10-02 09:48 | Outpatient (REF) | payer OTHER, SELFPAY ==
[2023-10-02 14:09] LABS: Anion Gap 13 (12-20); Blood Urea Nitrogen 13 mg/dL (9-16); Calcium 9.3 mg/dL (8.4-10.2); Carbon Dioxide 25 mmol/L (22-29); Chloride 106 mmol/L (96-108); Cholesterol 159 mg/dL (<200); Estimated Glomerular Filt Rate > 60; Glucose Random 157 mg/dL (60-115); HDL Cholesterol 38 mg/dL (>40); LDL Cholesterol Calculated 98 mg/dL (<100); Potassium 4.2 mmol/L (3.3-5.1); Sodium 140 mmol/L (135-145); Triglycerides 115 mg/dL (<150)
[2023-10-02 14:35] LABS: Creatinine Urine 72.84 mg/dL; Microalbum/Creatinine Ratio Ur 8.2 ug/mg cr (<30)
== END 2023-10-02 09:49 | disposition home or self-care (01) ==
LOC: HO.HMGCLDS 09:48
PROVIDERS: Visit Provider Internal Medicine Endocrinology, Diabetes & Metabolism
DX: E11.65 Type 2 diabetes mellitus with hyperglycemia (principal)
CPT/HCPCS: 36415; 80048; 80061; 82043; 82570

== ENCOUNTER 2023-10-09 13:35 | Outpatient (AMB) | payer OTHER, SELFPAY ==
--- NOTE | 2023-10-09 13:48 | A.OFFVIS_ITS ---
Intake Vital Signs 10/09/23 13:49 Height 5 ft 2 in Weight 244 lb 4.355 oz BMI 44.7 BP 130/76 Blood Pressure Location Lt brachial Position Sitting Pulse 99 Pulse Source Pulse Oximeter Intake Visit Reasons: f/u Type 2 DM-confirmed Intake Note: Patient present today to follow up on Type 2 Diabetes Mellitus. 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 Accompanied by: Self / Same As Patient Allergies gluten Adverse Reaction (Unknown, Verified 10/09/23 14:00) Diarrhea, stomach bloating Medication List - Last Reconciled 10/09/23 by Donald Goldstein MD atorvastatin 20 mg PO DAILY blood-glucose sensor (Proactive ComfortStyle Nicole 3 Sensor device) As directed change every 14 days cholecalciferol (vitamin D3) 50,000 mcg PO .week insulin glargine (Lantus Solostar U-100 Insulin) 52 units subcut BID metformin 1,000 mg PO BID semaglutide (Ozempic) 0.5 mg (0.736 mL) subcut QWEEK valsartan 320 mg PO DAILY HPI HPI Comments 2 History of Present Illness Details 57 YO F who is seen in consultation for T2DM at the request of PCP. Initially diagnosed with T2DM in 7 yrs . Saw navi at [facility] [place] Dr. Cook Was initially started on treatment with metformin .Took Trulicity and had diaarhea Current regimen . metformin 1000 mg BID Ozempic 0.5 mg Qwkly - having some issues with the Ozempic 1-2 days after injection but willing to stay on for now and try increased dose Lantus 50 units Humalog correctiion scale 3 X/day Can't tolerate SGLT-2 inhibitors because of yeast infections Nicole download shows she is using the sensor 97% of the time. Average glucose is 180 with G mi of 7.6% and variability of 19.9 % glucose is in target range 53% of the time with 47% hyperglycemia and no hypoglycemia. pattern shows post- prandial elevation in glucose post-breakfast and post-lunch and dinner Reports low sugars rarely . Family history of T2DM in brother and grandmother . Has eyes checked yearly, last eye exam needs to make appt , denies retinopathy. Denies neuropathy, sees podiatry. Denies nephropathy, on ALEXANDRA/ARB. Has HLD, on statin. Denies CAD. Not Had diabetes education. [facility] Medical History Uncontrolled type 2 diabetes mellitus with hyperglycemia Surgical History Hx of surgical fusion joint History of colonoscopy Family History Mother Hypothyroidism Father Murmur Pacemaker Social History Alcohol intake: current Alcohol intake frequency: holidays/special occasions only Patient Tobacco Use Status: Former Tobacco user Quit Date: 05/15/2021 Physical Exam Vital Signs: Last Vital Signs Pulse 99 10/09/23 13:49 BP 130/76 10/09/23 13:49 BMI result Body Mass Index 44.7 Absence of Cushingoid features. Absence of acromegalic features. Neck exam reveals nl size thyroid about 15 gms. No thyroid nodules palpable. No carotid bruits present. Lungs CTA. Heart S1 S2, Reg R/R. No M/R/ G. Skin exam reveals absence of vitiligo or acanthosis nigricans. Abdominal exam reveals Soft NT/ND with NA BS. No organomegaly present. Neck Other: . Extrem Other: Visual exam of foot performed. No ulcerations or open lesions. No onchomycosis, no callouses.Pulses 2 + distally Sensation intact to monofilament exam. Vibratory sensation sensed is intact with 128 Hz tuning fork Results AMB Hemoglobin A1c AMB Hemoglobin A1c 7.9 % Last Edit by SERA Brown on 10/09/23 14:11 Results Reviewed Results Reviewed: Laboratory Last Values Glucose (Clinic) 141 mg/dL (60-115) H 10/09/23 13:58 Assessment & Plan Assessment & Plan (1) Uncontrolled type 2 diabetes mellitus with hyperglycemia: Code(s): E11.65 - Type 2 diabetes mellitus with hyperglycemia Plan: Is a 57-year-old white female with a history of type 2 diabetes being treated with metformin, Ozempic, glimepiride and basal insulin with improved good glycemic control and no known microvascular or macrovascular complications. Plan is to increase the Ozempic to 1 mg Q weekly if patient can tolerate. If they are still post-meal spikes, will then initiate Humalog scale 81-150 6 units , 151-200 8 units and >200 10 units. Patient should follow-up with the para educator Orders: Orders AMB Hemoglobin A1c Today E11.65 - Type 2 diabetes mellitus with hyperglycemia Medications: New insulin lispro (Humalog KwikPen (U-100) Insulin) 8 units (0.08 mL) subcut TID 30 mL 5RF semaglutide (Ozempic) 1 mg (0.75 mL) subcut QWEEK 3 mL 5RF Discontinued semaglutide (Ozempic) Discontinued Reason: Doctor's Order 0.5 mg (0.736 mL) subcut QWEEK 3 mL 5RF Coding Level of Care Code Est Pt Level 4 (08329) Diagnoses Uncontrolled type 2 diabetes mellitus with hyperglycemia E11.65
[2023-10-09 13:49] VITALS: BP 130/76; PULSE 99; BMI 44.7
[2023-10-09 14:02] LABS: Glucose, Whole Blood 141 mg/dL (60-115)
== END 2023-10-09 14:55 | disposition home or self-care (01) ==
PROVIDERS: PCP Nurse Practitioner Adult Health; Visit Provider Internal Medicine Endocrinology, Diabetes & Metabolism
DX: E11.65 Type 2 diabetes mellitus with hyperglycemia (principal)
CPT/HCPCS: 99214

== ENCOUNTER → 2023-10-09 13:35 | Outpatient (BNVA) | payer OTHER, SELFPAY | PROVIDERS: PCP Nurse Practitioner Adult Health; Visit Provider Internal Medicine Endocrinology, Diabetes & Metabolism | DX: E11.65 Type 2 diabetes mellitus with hyperglycemia (principal); Z79.4 Long term (current) use of insulin | CPT/HCPCS: 82947; 83036 ==

== ENCOUNTER 2023-10-10 09:39 | Outpatient (AMB) | payer OTHER, SELFPAY ==
--- NOTE | 2023-10-10 10:30 | MHC.AMDMED ---
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 Accompanied by: Self / Same As Patient Allergies gluten Adverse Reaction (Unknown, Verified 10/09/23 14:00) Diarrhea, stomach bloating HPI Comprehensive Diabetes Asmnt Most Recent Diabetes Results: Microalb/Creat Ratio 8.2 ug/mg cr (<30) 10/02/23 Cholesterol 159 mg/dL (<200) 10/02/23 HDL Cholesterol 38 mg/dL (>40) L 10/02/23 Triglycerides 115 mg/dL (<150) 10/02/23 Creatinine 0.72 mg/dL (0.5-1.4) 10/02/23 Blood Urea Nitrogen 13 mg/dL (9-16) 10/02/23 Sodium 140 mmol/L (135-145) 10/02/23 Potassium 4.2 mmol/L (3.3-5.1) 10/02/23 Chloride 106 mmol/L (96-108) 10/02/23 Carbon Dioxide 25 mmol/L (22-29) 10/02/23 Calcium 9.3 mg/dL (8.4-10.2) 10/02/23 [facility] Medical History Uncontrolled type 2 diabetes mellitus with hyperglycemia Surgical History Hx of surgical fusion joint History of colonoscopy Family History Mother Hypothyroidism Father Murmur Pacemaker Social History Alcohol intake: current Alcohol intake frequency: holidays/special occasions only Patient Tobacco Use Status: Former Tobacco user Quit Date: 05/15/2021 Assessment & Plan Assessment & Plan (1) Uncontrolled type 2 diabetes mellitus with hyperglycemia: Code(s): E11.65 - Type 2 diabetes mellitus with hyperglycemia Plan: DIABETES CLASS 4 On [address] Road to Better Managing My Diabetes Pre and Post class survey. 1= I know this? 2= I need more instruction? 3= I need a full review Before Class After Class 1 What diabetes is and some of the most common myths about diabetes 3 2 The feelings you can have about diabetes 3 1 Sick Day and Emergency Planning 2 2 Managing diabetes with healthy eating, physical activity, taking medications 3 1 How physical activity effects glucose levels 3 3 The importance of having a plan And engaging a support network and health care team 3 ?Topics covered in today?s session included: Emotional Health Overview of diabetes, what it is, feelings about having it, and ways to manage it. ?Myths & facts about diabetes Blood sugar monitoring and expected blood sugar goals. Management of diabetes with healthy eating, physical activity, and medications. Sick Day Guidelines Fluids/meal plan Medication/insulin Monitor blood glucose When to contact your doctor Emergency planning Exercise Medical clearance Effect of exercise on blood sugar Start slowly and gradually increase pace/duration over time Goal amount of exercise Precautions Checking blood glucose/have a source of carbs with you The patient was provided with the following written educational materials: On-going Support hand out, and Emergency checklist Patient was receptive to information provided and participated in the discussion. Patient asked?appropriate questions and demonstrated good understanding of the topics discussed.? Patient completed the four diabetes education classes, patient's referring provider has access to all pertinent documentation related to patient's participation through EMR Patient A1c prior to Diabetes Education program 8.7% Patient's A1c post Diabetes Education program 7.9% ?Reviewed patient DSMT self-mgmt and ongoing support option Smart Goal Assessment:? Patient will choose a healthy choice for dinner 3 times a week Pt met goal more than 50% New Smart Goal: Patient will start Ozempic once a week Patient Instructions: Pt will f/u with LUISES in 1 month to review glucose numbers Coding Level of Care Code Est Pt Level 1 (88183) Diagnoses Uncontrolled type 2 diabetes mellitus with hyperglycemia E11.65
== END 2023-10-10 10:33 | disposition home or self-care (01) ==
PROVIDERS: PCP Nurse Practitioner Adult Health; Visit Provider Registered Nurse Diabetes Educator
DX: E11.65 Type 2 diabetes mellitus with hyperglycemia (principal)

== ENCOUNTER → 2023-10-10 09:39 | Outpatient (BNVA) | payer OTHER, SELFPAY | PROVIDERS: PCP Nurse Practitioner Adult Health; Visit Provider Registered Nurse Diabetes Educator | DX: E11.65 Type 2 diabetes mellitus with hyperglycemia (principal) | CPT/HCPCS: 99211 ==

== ENCOUNTER 2023-11-08 10:45 | Outpatient (AMB) | payer OTHER, SELFPAY ==
--- NOTE | 2023-11-08 11:04 | MHC.AMDMED ---
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 Accompanied by: Self / Same As Patient Allergies gluten Adverse Reaction (Unknown, Verified 10/09/23 14:00) Diarrhea, stomach bloating HPI Comprehensive Diabetes Asmnt Most Recent Diabetes Results: Microalb/Creat Ratio 8.2 ug/mg cr (<30) 10/02/23 Cholesterol 159 mg/dL (<200) 10/02/23 HDL Cholesterol 38 mg/dL (>40) L 10/02/23 Triglycerides 115 mg/dL (<150) 10/02/23 Creatinine 0.72 mg/dL (0.5-1.4) 10/02/23 Blood Urea Nitrogen 13 mg/dL (9-16) 10/02/23 Sodium 140 mmol/L (135-145) 10/02/23 Potassium 4.2 mmol/L (3.3-5.1) 10/02/23 Chloride 106 mmol/L (96-108) 10/02/23 Carbon Dioxide 25 mmol/L (22-29) 10/02/23 Calcium 9.3 mg/dL (8.4-10.2) 10/02/23 [facility] Medical History Uncontrolled type 2 diabetes mellitus with hyperglycemia Surgical History Hx of surgical fusion joint History of colonoscopy Family History Mother Hypothyroidism Father Murmur Pacemaker Social History Alcohol intake: current Alcohol intake frequency: holidays/special occasions only Patient Tobacco Use Status: Former Tobacco user Quit Date: 05/15/2021 Assessment & Plan Assessment & Plan (1) Uncontrolled type 2 diabetes mellitus with hyperglycemia: Code(s): E11.65 - Type 2 diabetes mellitus with hyperglycemia Plan: Personal Continuous Glucose Monitor: Patients CGM information reviewed Reviewed patient's sensor data: Hypoglycemia: ? 0% Hyperglycemia:? 24% Time in Range:? 76% Average glucose for the last 2 weeks?156 mg/dL Patient has had significant improvement in glucose levels on Ozempic 1 mg. Patient requested prescription for Ozempic 2 mg Discussed with patient's switching Lantus to Toujeo or Tresiba U 200, will discuss with patient at next visit Message sent to Dr. Goldstein to increase Ozempic dose Reviewed how to interpret trend arrows Reminded patient that to check finger sticks if symptoms do not match sensor reading. Discussed lag time between finger stick and sensor data.? Patient able to insert sensor independently at home without issue.? Coding Level of Care Code Est Pt Level 1 (62714) Diagnoses Uncontrolled type 2 diabetes mellitus with hyperglycemia E11.65
== END 2023-11-08 11:14 | disposition home or self-care (01) ==
PROVIDERS: PCP Nurse Practitioner Adult Health; Visit Provider Registered Nurse Diabetes Educator
DX: E11.65 Type 2 diabetes mellitus with hyperglycemia (principal)

== ENCOUNTER → 2023-11-08 10:45 | Outpatient (BNVA) | payer OTHER, SELFPAY | PROVIDERS: PCP Nurse Practitioner Adult Health; Visit Provider Registered Nurse Diabetes Educator | DX: E11.65 Type 2 diabetes mellitus with hyperglycemia (principal) | CPT/HCPCS: 99211 ==

== ENCOUNTER 2023-12-20 10:12 | Outpatient (AMB) | payer OTHER, SELFPAY ==
--- NOTE | 2023-12-20 10:41 | A.OFFVIS_ITS ---
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 Accompanied by: Self / Same As Patient Allergies gluten Adverse Reaction (Unknown, Verified 10/09/23 14:00) Diarrhea, stomach bloating HPI Comprehensive Diabetes Asmnt Most Recent Diabetes Results: Microalb/Creat Ratio 8.2 ug/mg cr (<30) 10/02/23 Cholesterol 159 mg/dL (<200) 10/02/23 HDL Cholesterol 38 mg/dL (>40) L 10/02/23 Triglycerides 115 mg/dL (<150) 10/02/23 Creatinine 0.72 mg/dL (0.5-1.4) 10/02/23 Blood Urea Nitrogen 13 mg/dL (9-16) 10/02/23 Sodium 140 mmol/L (135-145) 10/02/23 Potassium 4.2 mmol/L (3.3-5.1) 10/02/23 Chloride 106 mmol/L (96-108) 10/02/23 Carbon Dioxide 25 mmol/L (22-29) 10/02/23 Calcium 9.3 mg/dL (8.4-10.2) 10/02/23 [facility] Medical History Uncontrolled type 2 diabetes mellitus with hyperglycemia Surgical History Hx of surgical fusion joint History of colonoscopy Family History Mother Hypothyroidism Father Murmur Pacemaker Social History Alcohol intake: current Alcohol intake frequency: holidays/special occasions only Patient Tobacco Use Status: Former Tobacco user Quit Date: 05/15/2021 Assessment & Plan Assessment & Plan (1) Uncontrolled type 2 diabetes mellitus with hyperglycemia: Code(s): E11.65 - Type 2 diabetes mellitus with hyperglycemia Plan: Personal Continuous Glucose Monitor: Patients CGM information reviewed Reviewed patient's sensor data: Hypoglycemia: ? 0% Hyperglycemia:? 34% Time in Range:? 66% Average glucose for the last 2 weeks? 164 mg/dL Patient has started Ozempic 2 mg weekly, patient is ready to try alternative to Lantus to see if that helps with fluid retention. Patient will contact insurance to find out if they cover Toujeo or Tresiba. Discussed with patient action of Lantus, and Humalog patient reports she had been taking Humalog only when glucose levels were above 200 mL/ dL Recommended to patient if she is eating meal with carbohydrate to take Humalog 15 minutes prior to meals Also instructed patient taking 2 doses of Humalog with in 2 hours of each other can increase risk of hypoglycemia. Space Humalog doses at least 3.5 to 4 hours apart Reviewed how to interpret trend arrows Reminded patient that to check finger sticks if symptoms do not match sensor reading. Discussed lag time between finger stick and sensor data.? Patient able to insert sensor independently at home without issue.? Patient Instructions: Patient will send a portal message regarding which basal insulin insurance will cover Patient will follow-up with outreach educator in 3 months Coding Level of Care Code Est Pt Level 1 (25238) Diagnoses Uncontrolled type 2 diabetes mellitus with hyperglycemia E11.65
== END 2023-12-20 10:54 | disposition home or self-care (01) ==
PROVIDERS: PCP Nurse Practitioner Adult Health; Visit Provider Registered Nurse Diabetes Educator
DX: E11.65 Type 2 diabetes mellitus with hyperglycemia (principal)

== ENCOUNTER → 2023-12-20 10:12 | Outpatient (BNVA) | payer OTHER, SELFPAY | PROVIDERS: PCP Nurse Practitioner Adult Health; Visit Provider Registered Nurse Diabetes Educator | DX: E11.65 Type 2 diabetes mellitus with hyperglycemia (principal); Z79.4 Long term (current) use of insulin; Z79.85 Long-term (current) use of injectable non-insulin antidiabetic drugs | CPT/HCPCS: 99211 ==

== ENCOUNTER 2024-02-11 13:56 | Outpatient (AMB) | payer OTHER, SELFPAY ==
[2024-02-11 14:02] VITALS: BP 118/72; PULSE 95; BMI 44.1
--- NOTE | 2024-02-11 14:02 | MHC.OFFVIS ---
Vital Signs 02/11/24 14:02 Height 5 ft 2 in Weight 241 lb 2.971 oz BMI 44.1 BP 118/72 Blood Pressure Location Lt brachial Position Sitting Pulse 95 Pulse Source Pulse Oximeter Intake Visit Reasons: f/u Type 2 DM-confirmed Intake Note: Patient present today to follow up on Type 2 Diabetes Mellitus. Last Diabetic Eye exam: 01/2024 Last Podiatry Visit: 11/2023 Random Glucose: 136 mg/dl HgA1C: 7.5% Certified Surgical First Assistant Required: No Accompanied by: Self / Same As Patient Allergies gluten Adverse Reaction (Unknown, Verified 02/11/24 14:06) Diarrhea, stomach bloating HPI Comments Details: 57 YO F who is seen in consultation for T2DM at the request of PCP. Initially diagnosed with T2DM in 7 yrs . Saw navi at [facility] Dr. Cook Was initially started on treatment with metformin .Took Trulicity and had diaarhea Current regimen . metformin 1000 mg BID Ozempic 2 mg Qwkly - Lantus 52 units BID Humalog correctiion scale 3 X/day Can't tolerate SGLT-2 inhibitors because of yeast infections Nicole download shows she is using the sensor 98% of the time. Average glucose is 178 with G mi of 7.6% and variability of 16.9 % glucose is in target range 55% of the time with 45% hyperglycemia and no hypoglycemia. pattern shows persistent elevation of glucose throughout the day with slight elevation post breakfast and post dinner Reports low sugars rarely . Family history of T2DM in brother and grandmother . Has eyes checked yearly, last eye exam 02/12/2024 , denies retinopathy. Denies neuropathy, sees podiatry. Denies nephropathy, on ALEXANDRA/ARB. Has HLD, on statin. Denies CAD. Not Had diabetes education. [facility] Medical History Uncontrolled type 2 diabetes mellitus with hyperglycemia Surgical History Hx of surgical fusion joint History of colonoscopy Family History Mother Hypothyroidism Father Murmur Pacemaker Social History Alcohol intake: current Alcohol intake frequency: holidays/special occasions only Patient Tobacco Use Status: Former Tobacco user Physical Exam Vital Signs: Last Vital Signs Pulse 95 02/11/24 14:02 BP 118/72 02/11/24 14:02 BMI result Body Mass Index 44.1 Absence of Cushingoid features. Absence of acromegalic features. Neck exam reveals nl size thyroid about 15 gms. No thyroid nodules palpable. No carotid bruits present. Lungs CTA. Heart S1 S2, Reg R/R. No M/R/ G. Skin exam reveals absence of vitiligo or acanthosis nigricans. Abdominal exam reveals Soft NT/ND with NA BS. No organomegaly present. Neck Other: . Extrem Other: Visual exam of foot performed. No ulcerations or open lesions. No onchomycosis, no callouses.Pulses 2 + distally Sensation intact to monofilament exam. Vibratory sensation sensed is intact with 128 Hz tuning fork Results AMB Hemoglobin A1c AMB Hemoglobin A1c 7.5 % Last Edit by SERA Brown on 02/11/24 14:18 Results Reviewed Results Reviewed: Laboratory Last Values Glucose (Clinic) 136 mg/dL (60-115) H 02/11/24 14:09 Hgb A1c (Clinic) 7.5 % (4.0-6.0) H 02/11/24 14:13 Assessment & Plan Assessment & Plan (1) Uncontrolled type 2 diabetes mellitus with hyperglycemia: Code(s): E11.65 - Type 2 diabetes mellitus with hyperglycemia Category: Medical Plan: Is a 58-year-old white female with a history of type 2 diabetes being treated with metformin, Ozempic, and basal insulin with improved fair glycemic control and no known microvascular or macrovascular complications. Plan is to start Jardiance 10 mg q.d.. Patient was warned about the side effects of Jardiance including but not limited to dehydration, DKA and Savannah's gangrene. She will follow-up with the primary care diabetic team about 6 weeks Orders: Orders AMB Hemoglobin A1c Today E11.65 - Type 2 diabetes mellitus with hyperglycemia, Z13.9 - Encounter for screening, unspecified Basic Metabolic Panel 10 Days E11.65 - Type 2 diabetes mellitus with hyperglycemia Medications: New insulin glargine (Lantus Solostar U-100 Insulin) 52 units (0.52 mL) subcut BID 45 mL 4RF empagliflozin (Jardiance) 10 mg PO DAILY 30 tabs 4RF Coding Level of Care Code Est Pt Level 4 (85505) Diagnoses Uncontrolled type 2 diabetes mellitus with hyperglycemia E11.65
[2024-02-11 14:13] LABS: Glucose, Whole Blood 136 mg/dL (60-115)
== END 2024-02-11 14:44 | disposition home or self-care (01) ==
PROVIDERS: PCP Nurse Practitioner Adult Health; Visit Provider Internal Medicine Endocrinology, Diabetes & Metabolism
DX: Z13.9 Encounter for screening, unspecified (principal); E11.65 Type 2 diabetes mellitus with hyperglycemia
CPT/HCPCS: 99214

== ENCOUNTER → 2024-02-11 13:56 | Outpatient (BNVA) | payer OTHER, SELFPAY | PROVIDERS: PCP Nurse Practitioner Adult Health; Visit Provider Internal Medicine Endocrinology, Diabetes & Metabolism | DX: E11.65 Type 2 diabetes mellitus with hyperglycemia (principal); Z79.4 Long term (current) use of insulin | CPT/HCPCS: 82947; 83036 ==

== ENCOUNTER 2024-02-26 10:56 | Outpatient (REF) | payer OTHER, SELFPAY ==
[2024-02-26 13:47] LABS: Anion Gap 13 (12-20); Blood Urea Nitrogen 13 mg/dL (9-16); Calcium 10.2 mg/dL (8.4-10.2); Carbon Dioxide 29 mmol/L (22-29); Chloride 103 mmol/L (96-108); Estimated Glomerular Filt Rate > 60; Glucose Random 119 mg/dL (60-115); Potassium 4.2 mmol/L (3.3-5.1); Sodium 141 mmol/L (135-145)
== END 2024-02-26 10:57 | disposition home or self-care (01) ==
LOC: HO.HMGCLDS 10:56
PROVIDERS: PCP Nurse Practitioner Adult Health; Visit Provider Internal Medicine Endocrinology, Diabetes & Metabolism
DX: E11.65 Type 2 diabetes mellitus with hyperglycemia (principal)
CPT/HCPCS: 36415; 80048

== ENCOUNTER 2024-03-19 10:10 | Outpatient (AMB) | payer OTHER, SELFPAY ==
--- NOTE | 2024-03-19 10:36 | MHC.AMDMED ---
Intake Intake Visit Reasons: T2DM/CONFIRMED Mushroom Growth Media Mixer Required: No Accompanied by: Self / Same As Patient Allergies gluten Adverse Reaction (Unknown, Verified 02/11/24 14:06) Diarrhea, stomach bloating HPI Comprehensive Diabetes Asmnt Most Recent Diabetes Results: Microalb/Creat Ratio 8.2 ug/mg cr (<30) 10/02/23 Cholesterol 159 mg/dL (<200) 10/02/23 HDL Cholesterol 38 mg/dL (>40) L 10/02/23 Triglycerides 115 mg/dL (<150) 10/02/23 Creatinine 0.75 mg/dL (0.5-1.4) 02/26/24 Blood Urea Nitrogen 13 mg/dL (9-16) 02/26/24 Sodium 141 mmol/L (135-145) 02/26/24 Potassium 4.2 mmol/L (3.3-5.1) 02/26/24 Chloride 103 mmol/L (96-108) 02/26/24 Carbon Dioxide 29 mmol/L (22-29) 02/26/24 Calcium 10.2 mg/dL (8.4-10.2) 02/26/24 PFSH Medical History Uncontrolled type 2 diabetes mellitus with hyperglycemia Surgical History Hx of surgical fusion joint History of colonoscopy Family History Mother Hypothyroidism Father Murmur Pacemaker Social History Alcohol intake: current Alcohol intake frequency: holidays/special occasions only Patient Tobacco Use Status: Former Tobacco user Assessment & Plan Assessment & Plan (1) Uncontrolled type 2 diabetes mellitus with hyperglycemia: Code(s): E11.65 - Type 2 diabetes mellitus with hyperglycemia Plan: Personal Continuous Glucose Monitor: Patients CGM information reviewed Reviewed patient's sensor data: Hypoglycemia: ? 0% Hyperglycemia:? 6% Time in Range:94%? Average glucose for the last 2 weeks? 136 mg/dL At last visit with Dr. Goldstein patient started Jardiance 10 mg, patient reports since then her glucose has improved. Patient is also taking Ozempic 2 mg Lantus 52 units b.i.d. Humalog 8 units before meals Metformin 1000 mg b.i.d. After review of patient's blood sugar she is having some overnight hypoglycemia. Recommended to patient she decrease Lantus to 46 units b.i.d., her desire is to reduce the amount of diabetes medications she is currently using. She has appointment with INSTRUCTION ASSISTANT PRINCIPAL on 03/25/2024 to discuss increase in Jardiance dose Patient's last A1c 7.5% on 02/11/2024 Patient's next A1c will be due in April 2024 Patient able to insert sensor independently at home without issue.? Portions of this note were created using voice recognition software, please excuse any words or phrases that may have been misinterpreted. Patient Instructions: Patient will follow-up with family living educator in 4 months Coding Level of Care Code Est Pt Level 1 (50920) Diagnoses Uncontrolled type 2 diabetes mellitus with hyperglycemia E11.65
== END 2024-03-19 10:44 | disposition home or self-care (01) ==
PROVIDERS: PCP Nurse Practitioner Adult Health; Visit Provider Registered Nurse Diabetes Educator
DX: E11.65 Type 2 diabetes mellitus with hyperglycemia (principal)

== ENCOUNTER → 2024-03-19 10:10 | Outpatient (BNVA) | payer OTHER, SELFPAY | PROVIDERS: PCP Nurse Practitioner Adult Health; Visit Provider Registered Nurse Diabetes Educator | DX: E11.65 Type 2 diabetes mellitus with hyperglycemia (principal) | CPT/HCPCS: 99211 ==

== ENCOUNTER 2024-03-25 10:40 | Outpatient (AMB) | payer OTHER, SELFPAY ==
--- NOTE | 2024-03-25 10:45 | A.OFFVIS_ITS ---
Vital Signs 03/25/24 10:51 Height 5 ft 2 in Weight 233 lb 11.04 oz BMI 42.7 BP 124/78 Blood Pressure Location Rt brachial Position Sitting Pulse 92 Pulse Source Pulse Oximeter Intake Visit Reasons: T2DM/LVM Intake Note: Former Patient of DR Goldstein last seen 02/11/2024, presents today to re-establish treatment for Type 2 Diabetes Mellitus: Last Diabetic Eye exam: 01/2024 Last Podiatry Exam: 11/2023 Most recent HbA1c: 7.5%, 02/11/2024 Random Glucose- 133mg/dL, Today Learning Solutions Specialist Required: No Accompanied by: Self / Same As Patient Allergies gluten Adverse Reaction (Unknown, Verified 03/25/24 10:46) Diarrhea, stomach bloating HPI Comments Details: 57 YO F who is seen for Follow-up of type 2 diabetes. She was seen by Kristine ELENA in February Dr. Goldstein 02/14/2024 as an initial consult at which time she was started on Jardiance 10 mg p.o. q.d. Initially diagnosed with T2DM in 7 yrs . Saw navi at [facility] Dr. Cook Was initially started on treatment with metformin .Took Trulicity and had diaarhea Current regimen: metformin 1000 mg BID Ozempic 2 mg Qwkly - Lantus 46 units BID Humalog 16 units 3 X/day (only if eating higher carbs/glucose over 200) Taking approx 10 times per week. Jardiance 10 mg daily Freestyle krunal sensor 3 average glucose: 139 Glucose Management indicator 6.6 % 0 % very high (above 250) 7 % high (181-250) 93 % in range (70-180] 0 % low (69-55) 0 % very low (below 54) Family history of T2DM in brother and grandmother . Has eyes checked yearly, last eye exam 02/12/2024 , denies retinopathy. Denies neuropathy, sees podiatry. Denies this, tingling, cramping in the lower extremity. Denies nephropathy, on ALEXANDRA/ARB. Has HLD, on statin. Denies CAD. She walks regularly and follows a balanced diet. Recently saw firer diesel locomotive. [facility] Medical History Uncontrolled type 2 diabetes mellitus with hyperglycemia Surgical History Hx of surgical fusion joint History of colonoscopy Family History Mother Hypothyroidism Father Murmur Pacemaker Social History Alcohol intake: current Alcohol intake frequency: holidays/special occasions only Patient Tobacco Use Status: Former Tobacco user Physical Exam Vital Signs: Last Vital Signs Pulse 92 03/25/24 10:51 BP 124/78 03/25/24 10:51 BMI result Body Mass Index 42.7 Const General: cooperative, healthy appearing and alert Nutritional Appearance: overweight Orientation/consciousness: patient oriented x3 Limitations: no limitations Neck Neck: Yes normal visual inspection Thyroid: Thyroid normal Chest Chest palpation & inspection: normal inspection of the chest Neuro General: patient oriented x3 Extrem Other: Visual exam of foot performed. No ulcerations or open lesions. No onchomycosis, no callouses. Sensation intact to monofilament exam. Vibratory sensation is normal with 128 Hz tuning fork. Results Reviewed Results Reviewed: Laboratory Last Values Glucose (Clinic) 133 mg/dL (60-115) H 03/25/24 10:56 Laboratory Tests 10/02/23 10/09/23 02/11/24 10:21 14:05 14:13 Potassium Creatinine Estimated GFR Hgb A1c (Clinic) 7.9 H 7.5 H Calcium Triglycerides 115 Cholesterol 159 LDL Cholesterol, Calc 98 HDL Cholesterol 38 L Urine Creatinine 72.84 Urine Microalbumin 6.0 Microalb/Creat Ratio 8.2 02/26/24 10:59 Potassium 4.2 Creatinine 0.75 Estimated GFR > 60 Hgb A1c (Clinic) Calcium 10.2 D Triglycerides Cholesterol LDL Cholesterol, Calc HDL Cholesterol Urine Creatinine Urine Microalbumin Microalb/Creat Ratio Assessment & Plan Assessment & Plan (1) Uncontrolled type 2 diabetes mellitus with hyperglycemia: Code(s): E11.65 - Type 2 diabetes mellitus with hyperglycemia Category: Medical Plan: 60-year-old type 2 diabetic with progressively decreasing A1c. She is doing well with the addition of Jardiance and labs drawn several weeks after initiating Jardiance are within normal limits with no decline in EGFR. Continue current regime. Current regimen: metformin 1000 mg BID Ozempic 2 mg Qwkly - Lantus 46 units BID Humalog 16 units 3 X/day (only if eating higher carbs/glucose over 200) Taking approx 10 times per week. Jardiance 10 mg daily Could consider increasing Jardiance 25 mg at next visit which may decrease the amount of times she is needing to take bolus insulin. Tresiba is not covered by her insurance. Coding Level of Care Code Est Pt Level 4 (70852) Complex EM visit Add On G2211 Diagnoses Uncontrolled type 2 diabetes mellitus with hyperglycemia E11.65 Time Spent (min) 30 Comment Time spent reviewing labs/previous provider notes, face to face, chart documentation
[2024-03-25 10:51] VITALS: BP 124/78; PULSE 92; BMI 42.7
[2024-03-25 11:00] LABS: Glucose, Whole Blood 133 mg/dL (60-115)
== END 2024-03-25 11:43 | disposition home or self-care (01) ==
PROVIDERS: PCP Nurse Practitioner Adult Health; Visit Provider Nurse Practitioner Adult Health
DX: E11.65 Type 2 diabetes mellitus with hyperglycemia (principal)
CPT/HCPCS: 99214

== ENCOUNTER → 2024-03-25 10:40 | Outpatient (BNVA) | payer OTHER, SELFPAY | PROVIDERS: PCP Nurse Practitioner Adult Health; Visit Provider Nurse Practitioner Adult Health | DX: E11.65 Type 2 diabetes mellitus with hyperglycemia (principal); Z79.4 Long term (current) use of insulin | CPT/HCPCS: 82947 ==

== ENCOUNTER 2024-06-23 10:39 | Outpatient (AMB) | payer OTHER, SELFPAY ==
--- NOTE | 2024-06-23 11:08 | MHC.AMDMED ---
Intake Intake Visit Reasons: 60 MIN-conf Gravity Prospecting Observer Helper Required: No Accompanied by: Self / Same As Patient Allergies gluten Adverse Reaction (Unknown, Verified 03/25/24 10:46) Diarrhea, stomach bloating HPI Comprehensive Diabetes Asmnt Most Recent Diabetes Results: Microalb/Creat Ratio 8.2 ug/mg cr (<30) 10/02/23 Cholesterol 159 mg/dL (<200) 10/02/23 HDL Cholesterol 38 mg/dL (>40) L 10/02/23 Triglycerides 115 mg/dL (<150) 10/02/23 Creatinine 0.75 mg/dL (0.5-1.4) 02/26/24 Blood Urea Nitrogen 13 mg/dL (9-16) 02/26/24 Sodium 141 mmol/L (135-145) 02/26/24 Potassium 4.2 mmol/L (3.3-5.1) 02/26/24 Chloride 103 mmol/L (96-108) 02/26/24 Carbon Dioxide 29 mmol/L (22-29) 02/26/24 Calcium 10.2 mg/dL (8.4-10.2) 02/26/24 PFSH Medical History Uncontrolled type 2 diabetes mellitus with hyperglycemia Surgical History Hx of surgical fusion joint History of colonoscopy Family History Mother Hypothyroidism Father Murmur Pacemaker Social History Alcohol intake: current Alcohol intake frequency: holidays/special occasions only Patient Tobacco Use Status: Former Tobacco user Assessment & Plan Assessment & Plan (1) Uncontrolled type 2 diabetes mellitus with hyperglycemia: Code(s): E11.65 - Type 2 diabetes mellitus with hyperglycemia Plan: Personal Continuous Glucose Monitor: Patients CGM information reviewed Reviewed patient's sensor data: Hypoglycemia: ?0% Hyperglycemia:? 4% Time in Range:? 96% Average glucose for the last 2 weeks?130 mg/dL Patient's last A1c on 01/2024 7.5% Patient has current taking Lantus 45 units b.i.d. Has stopped using NovoLog prior to meals Jardiance 10 mg daily Ozempic 2 mg weekly Metformin 1000 mg b.i.d. Glucose levels are very well controlled, patient had several episodes of overnight hypoglycemia. Recommended to patient to reduce Lantus to 40 units b.i.d. reviewed with patient how to treat hypoglycemia with rule of 15s Patient asked if she could increase Jardiance to 25 mg daily, message sent to FORECLOSURE SPECIALIST to prescription for appropriate Patient is due for next A1c, will be seeing Dr. Goldstein on 07/2024 Reviewed how to interpret trend arrows Reminded patient that to check finger sticks if symptoms do not match sensor reading. Discussed lag time between finger stick and sensor data.? Patient able to insert sensor independently at home without issue.? Portions of this note were created using voice recognition software, please excuse any words or phrases that may have been misinterpreted. Patient Instructions: If episodes of hypoglycemia increase contact superintendent division or provider Follow-up with superintendent division in 3 months Coding Level of Care Code Est Pt Level 1 (14971) Diagnoses Uncontrolled type 2 diabetes mellitus with hyperglycemia E11.65
== END 2024-06-23 11:19 | disposition home or self-care (01) ==
PROVIDERS: PCP Nurse Practitioner Adult Health; Visit Provider Registered Nurse Diabetes Educator
DX: E11.65 Type 2 diabetes mellitus with hyperglycemia (principal)

== ENCOUNTER → 2024-06-23 10:39 | Outpatient (BNVA) | payer OTHER, SELFPAY | PROVIDERS: PCP Nurse Practitioner Adult Health; Visit Provider Registered Nurse Diabetes Educator | DX: E11.65 Type 2 diabetes mellitus with hyperglycemia (principal) | CPT/HCPCS: 99211 ==

== ENCOUNTER 2024-07-28 09:27 | Outpatient (REF) | payer OTHER, SELFPAY ==
[2024-07-28 14:09] LABS: Anion Gap 14 (12-20); Blood Urea Nitrogen 18 mg/dL (9-16); Calcium 9.7 mg/dL (8.4-10.2); Carbon Dioxide 26 mmol/L (22-29); Chloride 104 mmol/L (96-108); Estimated Glomerular Filt Rate > 60; Glucose Random 137 mg/dL (60-115); Potassium 4.1 mmol/L (3.3-5.1); Sodium 140 mmol/L (135-145)
== END 2024-07-28 09:28 | disposition home or self-care (01) ==
LOC: HO.HMGCLDS 09:27
PROVIDERS: PCP Nurse Practitioner Adult Health; Visit Provider Nurse Practitioner Adult Health
DX: E11.65 Type 2 diabetes mellitus with hyperglycemia (principal)
CPT/HCPCS: 36415; 80048

== ENCOUNTER 2024-08-18 10:12 | Outpatient (AMB) | payer OTHER, SELFPAY ==
--- OUTSIDE RECORDS SUMMARY | 2024-08-18 10:14 | XMS_ITS | Continuity of Care Document ---
Author Organization [facility] Adult Address [address] [place] [address]- Care Team Providers Care Traffic Operations Engineer Name Role Phone Khris DEGROOT, Jef Primary Care Physician [phone] Encounter [facility] Date(s): 06/23/24 - 07/23/[address] [address]- Encounter Type: Triage Allergies, Adverse Reactions, Alerts Substance Criticality Severity Reaction Reaction Severity Status Glutens diarrhea stomac h bloating Active Other Environmental Allergy Cat gut sutures-redness and swelling at site Active Immunizations Given and Recorded Vaccine Date Status Refusal Reason hepatitis B adult vaccine 11/18/23 Recorded hepatitis B adult vaccine 10/18/23 Recorded tetanus/diphtheria/pertussis, acel(Tdap) 10/18/23 Recorded tetanus/diphtheria/pertussis, acel(Tdap) 07/25/11 Given SARS-CoV-2(COVID-19)mRNA-LNP vac(iku549) 10/18/23 Recorded influenza virus vaccine, inactivated 1 06/22/23 Gi radhika influenza virus vaccine, inactivated 06/18/22 Navjot rded influenza virus vaccine, inactivated 2 07/25/21 Gi radhika influenza virus vaccine, inactivated 06/01/20 Navjot rded influenza virus vaccine, inactivated 3 05/08/19 Gi radhika influenza virus vaccine, inactivated 4 06/11/17 Gi radhika influenza virus vaccine, inactivated 06/23/16 Give n influenza virus vaccine, inactivated 08/02/15 Give n influenza virus vaccine, inactivated 07/25/11 Give n [id number] 12y+ bivalent booster vax 06/18/22 Recorded SARS-CoV-2 mRNA ([id number]) vax 11/23/21 Recorded SARS-CoV-2 (COVID-19) mRNA BNT-162b2 vac 07/08/21 Recorded SARS-CoV-2 (COVID-19) mRNA BNT-162b2 vac 11/24/20 Recorded SARS-CoV-2 (COVID-19) mRNA BNT-162b2 vac 11/03/20 Recorded Influenza Virus Vaccine (oldterm) 05/31/20 Recorde d 1Result Comment: [facility]: [id number] 2Result Comment: [facility] [id number] 3Result Comment: [facility]: [id number] 4Result Comment: [id number] Medications atorvastatin 20 mg oral tablet 1 tablet, By Mouth, Daily, # 30 tablet, 5 Refills, Maintenance, 03/07/24 12:13:00 PM EDT, [facility], 160, cm, 10/08/23 10:38:00 EST, Height, 110.4, kg, 06/18/23 19:23:00 EDT, Dry Weight Start Date: 03/07/24 Status: Ordered Quantity: 30.0 Unit: tablet Repeat number: 6 Humalog Kwik Pen 100 units/mL subcutaneous injection = 5 units, Subcutaneous Injection, Daily at supper, # 3 mL, 6 Refills, Maintenance, 01/17/22 4:02:00PM EDT, Solution, [facility], 160.5, cm, 01/17/22 9:25:00 EDT, Height Start Date: 01/17/22 Status: Ordered Quantity: 3.0 Unit: mL Repeat number: 7 Indication: Type 2 diabetes mellitus without complications ibuprofen 800 mg oral tablet 1 tablet = 800 mg, By Mouth, Every 8 hours, # 90 tablet, 0 Refills, Maintenance, 04/26/15 8:14:04 AMEDT, Tablet, [id number] Start Date: 04/26/15 Stop Date: 05/26/15 Status: Ordered Quantity: 90.0 Unit: tablet Repeat number: 1 Lantus Solostar Pen 100 units/mL subcutaneous solution = 50 units, Subcutaneous Injection, 2 times a day, # 90 mL, 0 Refills, Maintenance, 12/19/22 5:42:00PM EDT, [facility], 157, cm, 10/06/22 12:46:00 EST, Height, 109.6, kg, 01/31/22 9:32:00 EDT, Dry Weight Start Date: 12/19/22 Status: Ordered Quantity: 90.0 Unit: mL Repeat number: 1 metFORMIN 1000 mg oral tablet 1 tablet, By Mouth, 2 times a day, # 180 tablet, 1 Refills, Maintenance, 03/10/24 2:21:00 PM EDT, [facility], 160, cm, 10/08/23 10:38:00 EST, Height, 110.4, kg, 06/18/23 19:23:00 EDT, Dry Weight Start Date: 03/10/24 Status: Ordered Quantity: 180.0 Unit: tablet Repeat number: 1 Ozempic 2 mg/3 mL (0.25 mg or 0.5 mg dose) subcutaneous solution 0 Refills, Maintenance, 10/09/23 1:28:00 PM EST, Partial fill upon patient request if the prescription is for a schedule II opioid drug. Start Date: 10/09/23 Status: Ordered Repeat number: 1 Pen [place], 31 G x 5 mm BD Ultra Fine III See Instructions, # 300 each, Refills 3, Tot. Refills 3, Maintenance, to be used with Victoza and Lantus pen, 10/06/21 9:28:00 AM EST, Compound, 160.5, cm, 10/06/21 8:45:00 EST, Height Start Date: 10/06/21 Status: Ordered Quantity: 300.0 Unit: each Repeat number: 4 Indication: Type 2 diabetes mellitus without complications valsartan 320 mg oral tablet 1 tablet, By Mouth, Daily, # 90 tablet, 1 Refills, Maintenance, 01/28/24 10:34:00 AM EDT, [facility], 160, cm, 10/08/23 10:38:00 EST, Height, 110.4, kg, 06/18/23 19:23:00 EDT, Dry Weight Start Date: 01/28/24 Status: Ordered Quantity: 90.0 Unit: tablet Repeat number: 2 Victoza 18 mg/3 mL subcutaneous solution = 1.8 mg, Subcutaneous Injection, Daily, # 9 mL, 0 Refills, Maintenance, 01/29/23 12:12:00 PM EDT, Solution, [facility], 157, cm, 10/06/22 12:46:00 EST, Height, 109.6, kg, 01/31/22 9:32:00 EDT, Dry Weight Start Date: 01/29/23 Status: Ordered Quantity: 9.0 Unit: mL Repeat number: 1 Indication: Type 2 diabetes mellitus without complications Vitamin D3 50,000 intl units oral capsule 1 capsule, By Mouth, Every week, # 13 capsule, 1 Refills, Maintenance, 06/23/24 1:09:00 PM EDT, [facility], 160, cm, 10/08/23 10:38:00 EST, Height, 110.4, kg, 06/18/23 19:23:00 EDT, Dry Weight Start Date: 06/23/24 Status: Ordered Quantity: 13.0 Unit: capsule Repeat number: 2 Problem List Condition Confirmation Course Effective Dates Status Health Status Informant Adjustment disorder with mixed anxiety and depressed mood Confirmed Active Asthma Confirmed Active CD - Celiac disease Confirmed 2003 Active Hyperlipidemia 272.4 Confirmed Active Hypercholesterolemia Confirmed 2007 Active Liver function tests abnormal, neg serologies Confirmed Active Migraine Confirmed 2003 Active severe Obesity Confirmed Active Severe obesity Confirmed Active Mid back pain Confirmed Active Thyroid nodule Confirmed Active Tobacco use Confirmed Active Tubular adenoma of colon Confirmed Active Diabetes mellitus type 2, uncomplicated Confirmed Active Social History Social History Type Response Smoking Status Former smoker, quit more than 30 days ago; Number of years: 40; Total pack years: 40; Started at age: 13; Stopped at age: 53; entered on: 05/10/21 Sex Sex Representation Female (finding) Patient Care team information Care Team Personnel Name: Jef Pinedo MD Position: [facility] Physician - Primary Care Member Role: PCP Address: [address] [place] [phone]- Telecom: Name: [place] Position: [facility] Outreach Member Role: Lifetime Consulting Physician Care Team Related Persons Name: VIET SNIDER Name: LEILANI TIJERINA Insurance Providers Guarantor name: [facility] Information #: 1 Payer: [facility] Member Number: NA Policy Number: NA Group Number: NA
--- OUTSIDE RECORDS SUMMARY | 2024-08-18 10:14 | XMS_ITS | Continuity of Care Document ---
Author Organization [facility] Adult Address [address] [place] [address]- Care Team Providers Care Crew Trainer Name Role Phone Khris DEGROOT, Jef Primary Care Physician [place] [facility] [place](s): 06/23/24 - 07/23/[address] [address]- Encounter Type: Triage Allergies, Adverse Reactions, Alerts Substance Criticality Severity Reaction Reaction Severity Status Glutens diarrhea stomac h bloating Active Other Environmental Allergy Cat gut sutures-redness and swelling at site Active Immunizations Given and Recorded Vaccine Date Status Refusal Reason hepatitis B adult vaccine 11/18/23 Recorded hepatitis B adult vaccine 10/18/23 Recorded tetanus/diphtheria/pertussis, acel(Tdap) 10/18/23 Recorded tetanus/diphtheria/pertussis, acel(Tdap) 07/25/11 Given SARS-CoV-2(COVID-19)mRNA-LNP vac([id number]) 10/18/23 Recorded influenza virus vaccine, inactivated 1 [...] influenza virus vaccine, inactivated 07/25/11 Give n [id number] 12y+ bivalent booster vax 06/18/22 Recorded SARS-CoV-2 mRNA ([id number]-kklo-gjcyk) vax 11/23/21 Recorded SARS-CoV-2 (COVID-19) mRNA BNT-162b2 vac 07/08/21 Recorded SARS-CoV-2 (COVID-19) mRNA BNT-162b2 vac 11/24/20 Recorded SARS-CoV-2 (COVID-19) mRNA BNT-162b2 vac 11/03/20 Recorded Influenza Virus Vaccine (oldterm) 05/31/20 Recorde d 1Result Comment: [facility]: [id number] 2Result Comment: [facility] [id number] 3Result Comment: [facility]: [id number] 4Result Comment: [id number] Medications atorvastatin 20 mg oral tablet 1 tablet, By Mouth, Daily, # 30 tablet, 5 Refills, Maintenance, 03/07/24 12:13:00 PM EDT, [facility], 160, cm, 10/08/23 10:38:00 EST, Height, 110.4, kg, 06/18/23 19:23:00 EDT, Dry Weight Start Date: 03/07/24 Status: Ordered Quantity: 30.0 Unit: tablet Repeat number: 6 Humalog Kwik Pen 100 units/mL subcutaneous injection = 5 units, Subcutaneous Injection, Daily at supper, # 3 mL, 6 Refills, Maintenance, 01/17/22 4:02:00PM EDT, Solution, [facility], 160.5, cm, 01/17/22 9:25:00 EDT, Height Start Date: 01/17/22 Status: Ordered Quantity: 3.0 Unit: mL Repeat number: 7 Indication: Type 2 diabetes mellitus without complications ibuprofen 800 mg oral tablet 1 tablet = 800 mg, By Mouth, Every 8 hours, # 90 tablet, 0 Refills, Maintenance, 04/26/15 8:14:04 AMEDT, Tablet, [facility] Start Date: 04/26/15 Stop Date: 05/26/15 Status: Ordered Quantity: 90.0 Unit: tablet Repeat number: 1 Lantus Solostar Pen 100 units/mL subcutaneous solution = 50 units, Subcutaneous Injection, 2 times a day, # 90 mL, 0 Refills, Maintenance, 12/19/22 5:42:00PM EDT, [facility], 157, cm, 10/06/22 12:46:00 EST, Height, 109.6, kg, 01/31/22 9:32:00 EDT, Dry Weight Start Date: 12/19/22 Status: Ordered Quantity: 90.0 Unit: mL Repeat number: 1 metFORMIN 1000 mg oral tablet 1 tablet, By Mouth, 2 times a day, # 180 tablet, 1 Refills, Maintenance, 03/10/24 2:21:00 PM EDT, [facility], 160, cm, 10/08/23 10:38:00 EST, [...] 10/09/23 Status: Ordered Repeat number: 1 Pen [place], 31 G x 5 mm BD Ultra [...] 1 Refills, Maintenance, 01/28/24 10:34:00 AM EDT, [facility], 160, cm, 10/08/23 10:38:00 EST, Height, 110.4, kg, 06/18/23 19:23:00 EDT, Dry Weight Start Date: 01/28/24 Status: Ordered Quantity: 90.0 Unit: tablet Repeat number: 2 Victoza 18 mg/3 mL subcutaneous solution = 1.8 mg, Subcutaneous Injection, Daily, # 9 mL, 0 Refills, Maintenance, 01/29/23 12:12:00 PM EDT, Solution, [facility], 157, cm, 10/06/22 12:46:00 EST, Height, 109.6, kg, 01/31/22 9:32:00 EDT, Dry Weight Start Date: 01/29/23 Status: Ordered Quantity: 9.0 Unit: mL Repeat number: 1 Indication: Type 2 diabetes mellitus without complications Vitamin D3 50,000 intl units oral capsule 1 capsule, By Mouth, Every week, # 13 capsule, 1 Refills, Maintenance, 06/23/24 1:09:00 PM EDT, [facility], 160, cm, 10/08/23 10:38:00 EST, [...] Team Personnel Name: Jef Pinedo MD Position: [facility] Physician - Primary Care Member Role: PCP Address: [address] [place] [address]- Telecom: Name: [place] Position: [facility] Outreach Member Role: [employer] Consulting Physician Care Team Related Persons Name: VIET SNIDER Name: LEILANI TIJERINA Insurance Providers Guarantor name: [facility] Information #: 1 Payer: [facility] Member Number: NA Policy Number: NA Group Number: NA
--- OUTSIDE RECORDS SUMMARY | 2024-08-18 10:14 | XMS_ITS | Continuity of Care Document ---
Author Organization [facility] Address [address] [place] [address]- Care Team Providers Care Manager Technical Support Name Role Phone Khris DEGROOT, Jef Primary Care Physician [phone] Encounter [facility] [place] Date(s): 06/23/24 - 07/23/[address] [address]- Encounter Type: Triage Allergies, Adverse Reactions, Alerts Substance Criticality Severity Reaction Reaction Severity Status Glutens diarrhea stomac h bloating Active Other Environmental Allergy Cat gut sutures-redness and swelling at site Active Immunizations Given and Recorded Vaccine Date Status Refusal Reason hepatitis B adult vaccine 11/18/23 Recorded hepatitis B adult vaccine 10/18/23 Recorded tetanus/diphtheria/pertussis, acel(Tdap) 10/18/23 Recorded tetanus/diphtheria/pertussis, acel(Tdap) 07/25/11 Given SARS-CoV-2(COVID-19)mRNA-LNP vac([id number]) 10/18/23 Recorded influenza virus vaccine, inactivated 1 [...] influenza virus vaccine, inactivated 07/25/11 Give n [id number] 12y+ bivalent booster vax 06/18/22 Recorded SARS-CoV-2 mRNA (irrvtmv-nuvq-wfwss) vax 11/23/21 Recorded SARS-CoV-2 (COVID-19) mRNA BNT-162b2 vac 07/08/21 Recorded SARS-CoV-2 (COVID-19) mRNA BNT-162b2 vac 11/24/20 Recorded SARS-CoV-2 (COVID-19) mRNA BNT-162b2 vac 11/03/20 Recorded Influenza Virus Vaccine (oldterm) 05/31/20 Recorde d 1Result Comment: [facility]: [id number] 2Result Comment: [facility] [id number] 3Result Comment: [facility]: [id number] 4Result Comment: [id number] Medications atorvastatin 20 mg oral tablet 1 tablet, By Mouth, Daily, # 30 tablet, 5 Refills, Maintenance, 03/07/24 12:13:00 PM EDT, [facility], 160, cm, 10/08/23 10:38:00 EST, Height, 110.4, kg, 06/18/23 19:23:00 EDT, Dry Weight Start Date: 03/07/24 Status: Ordered Quantity: 30.0 Unit: tablet Repeat number: 6 Humalog Kwik Pen 100 units/mL subcutaneous injection = 5 units, Subcutaneous Injection, Daily at supper, # 3 mL, 6 Refills, Maintenance, 01/17/22 4:02:00PM EDT, Solution, [facility], 160.5, cm, 01/17/22 9:25:00 EDT, Height Start Date: 01/17/22 Status: Ordered Quantity: 3.0 Unit: mL Repeat number: 7 Indication: Type 2 diabetes mellitus without complications ibuprofen 800 mg oral tablet 1 tablet = 800 mg, By Mouth, Every 8 hours, # 90 tablet, 0 Refills, Maintenance, 04/26/15 8:14:04 AMEDT, Tablet, [facility] Start Date: 04/26/15 Stop Date: 05/26/15 Status: Ordered Quantity: 90.0 Unit: tablet Repeat number: 1 Lantus Solostar Pen 100 units/mL subcutaneous solution = 50 units, Subcutaneous Injection, 2 times a day, # 90 mL, 0 Refills, Maintenance, 12/19/22 5:42:00PM EDT, [facility], 157, cm, 10/06/22 12:46:00 EST, Height, 109.6, kg, 01/31/22 9:32:00 EDT, Dry Weight Start Date: 12/19/22 Status: Ordered Quantity: 90.0 Unit: mL Repeat number: 1 metFORMIN 1000 mg oral tablet 1 tablet, By Mouth, 2 times a day, # 180 tablet, 1 Refills, Maintenance, 03/10/24 2:21:00 PM EDT, [facility], 160, cm, 10/08/23 10:38:00 [...] 10/09/23 Status: Ordered Repeat number: 1 Pen [place], 31 G x 5 mm BD Ultra [...] 1 Refills, Maintenance, 01/28/24 10:34:00 AM EDT, [facility], 160, cm, 10/08/23 10:38:00 EST, Height, 110.4, kg, 06/18/23 19:23:00 EDT, Dry Weight Start Date: 01/28/24 Status: Ordered Quantity: 90.0 Unit: tablet Repeat number: 2 Victoza 18 mg/3 mL subcutaneous solution = 1.8 mg, Subcutaneous Injection, Daily, # 9 mL, 0 Refills, Maintenance, 01/29/23 12:12:00 PM EDT, Solution, [facility], 157, cm, 10/06/22 12:46:00 EST, Height, 109.6, kg, 01/31/22 9:32:00 EDT, Dry Weight Start Date: 01/29/23 Status: Ordered Quantity: 9.0 Unit: mL Repeat number: 1 Indication: Type 2 diabetes mellitus without complications Vitamin D3 50,000 intl units oral capsule 1 capsule, By Mouth, Every week, # 13 capsule, 1 Refills, Maintenance, 06/23/24 1:09:00 PM EDT, [facility], 160, cm, 10/08/23 10:38:00 [...] Team Personnel Name: Jef Pinedo MD Position: [facility] Physician - Primary Care Member Role: PCP Address: [address] [place] [phone]- Telecom: Name: [place] Position: [facility] Outreach Member Role: [employer] Consulting Physician Care Team Related Persons Name: VIET SNIDER Name: LEILANI TIJERINA Insurance Providers Guarantor name: [facility] Information #: 1 Payer: [facility] Member Number: NA Policy Number: NA Group Number: NA
--- OUTSIDE RECORDS SUMMARY | 2024-08-18 10:14 | XMS_ITS | Continuity of Care Document ---
Author Organization [facility] Adult Address [address] [place] [address]- Care Team Providers Care Computer Installer Name Role Phone Khris DEGROOT, Jef Primary Care Physician [place] [facility] [place]/25/24 - 07/25/[address] [address]- Encounter Type: Triage Allergies, Adverse Reactions, Alerts Substance Criticality Severity Reaction Reaction Severity Status Glutens diarrhea stomac h bloating Active Other Environmental Allergy Cat gut sutures-redness and swelling at site Active Immunizations Given and Recorded Vaccine Date Status Refusal Reason hepatitis B adult vaccine 11/18/23 Recorded hepatitis B adult vaccine 10/18/23 Recorded tetanus/diphtheria/pertussis, acel(Tdap) 10/18/23 Recorded tetanus/diphtheria/pertussis, acel(Tdap) 07/25/11 Given SARS-CoV-2(COVID-19)mRNA-LNP vac(reb864) 10/18/23 Recorded influenza virus vaccine, inactivated 1 [...] influenza virus vaccine, inactivated 07/25/11 Give n [id number] 12y+ bivalent booster vax 06/18/22 Recorded SARS-CoV-2 mRNA (xtxfsvh-omcs-osxfy) vax 11/23/21 Recorded SARS-CoV-2 (COVID-19) mRNA BNT-162b2 vac 07/08/21 Recorded SARS-CoV-2 (COVID-19) mRNA BNT-162b2 vac 11/24/20 Recorded SARS-CoV-2 (COVID-19) mRNA BNT-162b2 vac 11/03/20 Recorded Influenza Virus Vaccine (oldterm) 05/31/20 Recorde d 1Result Comment: [facility]: [id number] 2Result Comment: [facility] [id number] 3Result Comment: [facility]: [id number] 4Result Comment: [id number] Medications atorvastatin 20 mg oral tablet 1 tablet, By Mouth, Daily, # 30 tablet, 5 Refills, Maintenance, 03/07/24 12:13:00 PM EDT, [facility], 160, cm, 10/08/23 10:38:00 EST, Height, 110.4, kg, 06/18/23 19:23:00 EDT, Dry Weight Start Date: 03/07/24 Status: Ordered Quantity: 30.0 Unit: tablet Repeat number: 6 Humalog Kwik Pen 100 units/mL subcutaneous injection = 5 units, Subcutaneous Injection, Daily at supper, # 3 mL, 6 Refills, Maintenance, 01/17/22 4:02:00PM EDT, Solution, [facility], 160.5, cm, 01/17/22 9:25:00 EDT, Height Start Date: 01/17/22 Status: Ordered Quantity: 3.0 Unit: mL Repeat number: 7 Indication: Type 2 diabetes mellitus without complications ibuprofen 800 mg oral tablet 1 tablet = 800 mg, By Mouth, Every 8 hours, # 90 tablet, 0 Refills, Maintenance, 04/26/15 8:14:04 AMEDT, Tablet, [facility] Start Date: 04/26/15 Stop Date: 05/26/15 Status: Ordered Quantity: 90.0 Unit: tablet Repeat number: 1 Lantus Solostar Pen 100 units/mL subcutaneous solution = 50 units, Subcutaneous Injection, 2 times a day, # 90 mL, 0 Refills, Maintenance, 12/19/22 5:42:00PM EDT, [facility], 157, cm, 10/06/22 12:46:00 EST, Height, 109.6, kg, 01/31/22 9:32:00 EDT, Dry Weight Start Date: 12/19/22 Status: Ordered Quantity: 90.0 Unit: mL Repeat number: 1 metFORMIN 1000 mg oral tablet 1 tablet, By Mouth, 2 times a day, # 180 tablet, 1 Refills, Maintenance, 03/10/24 2:21:00 PM EDT, [facility], 160, cm, 10/08/23 10:38:00 [...] 10/09/23 Status: Ordered Repeat number: 1 Pen [place], 31 G x 5 mm BD Ultra [...] 1 Refills, Maintenance, 01/28/24 10:34:00 AM EDT, [facility], 160, cm, 10/08/23 10:38:00 EST, Height, 110.4, kg, 06/18/23 19:23:00 EDT, Dry Weight Start Date: 01/28/24 Status: Ordered Quantity: 90.0 Unit: tablet Repeat number: 2 Victoza 18 mg/3 mL subcutaneous solution = 1.8 mg, Subcutaneous Injection, Daily, # 9 mL, 0 Refills, Maintenance, 01/29/23 12:12:00 PM EDT, Solution, [facility], 157, cm, 10/06/22 12:46:00 EST, Height, 109.6, kg, 01/31/22 9:32:00 EDT, Dry Weight Start Date: 01/29/23 Status: Ordered Quantity: 9.0 Unit: mL Repeat number: 1 Indication: Type 2 diabetes mellitus without complications Vitamin D3 50,000 intl units oral capsule 1 capsule, By Mouth, Every week, # 13 capsule, 1 Refills, Maintenance, 06/23/24 1:09:00 PM EDT, [facility], 160, cm, 10/08/23 10:38:00 [...] Team Personnel Name: Jef Pinedo MD Position: [facility] Physician - Primary Care Member Role: PCP Address: [address] [place] [phone]- Telecom: Name: [place] Position: [facility] Outreach Member Role: Lifetime Consulting Physician Care Team Related Persons Name: VIET SNIDER Name: LEILANI TIJERINA Insurance Providers Guarantor name: [facility] Information #: 1 Payer: [facility] Member Number: NA Policy Number: NA Group Number: NA
--- NOTE | 2024-08-18 10:20 | MHC.OFFVIS ---
Vital Signs 08/18/24 10:27 Height 5 ft 2 in Weight 226 lb 10.163 oz BMI 41.4 BP 132/78 Blood Pressure Location Lt brachial Position Sitting Pulse 101 H Pulse Source Pulse Oximeter Intake Visit Reasons: T2DM Intake Note: Patient present today to follow up on Type 2 Diabetes Mellitus. Last Diabetic Eye exam: February 2024 Last Podiatry Visit: has an appt every 3 months, due next month. Random Glucose: 136 mg/dl HgA1C: 7.1% 08/18/24 Application Support Lead Required: No Accompanied by: Self / Same As Patient Allergies gluten Adverse Reaction (Unknown, Verified 08/18/24 10:29) Diarrhea, stomach bloating HPI Comments Details: 57 YO F who is seen in consultation for T2DM at the request of PCP. Initially diagnosed with T2DM in 7 yrs . Saw navi at [facility] Dr. Cook Was initially started on treatment with metformin .Took Trulicity and had diaarhea Current regimen . metformin 1000 mg BID Ozempic 2 mg Qwkly - Lantus 36 units BID Humalog correctiion scale 3 X/day 16 units Jardiance 25 mg QD Nicole download shows she is using the sensor 40% of the time. Average glucose is 141 with G mi of 6.7% and variability of 18.4 % glucose is in target range 90% of the time with 10% hyperglycemia and no hypoglycemia. Reports low sugars rarely . Family history of T2DM in brother and grandmother . Has eyes checked yearly, last eye exam 02/12/2024 , denies retinopathy. Denies neuropathy, sees podiatry. Denies nephropathy, on ALEXANDRA/ARB. Has HLD, on statin. Denies CAD. PFSH Medical History Uncontrolled type 2 diabetes mellitus with hyperglycemia Surgical History Hx of surgical fusion joint History of colonoscopy Family History Mother Hypothyroidism Father Murmur Pacemaker Social History Alcohol intake: current Alcohol intake frequency: holidays/special occasions only Patient Tobacco Use Status: Former Tobacco user Physical Exam Vital Signs: Last Vital Signs Pulse 101 H 08/18/24 10:27 BP 132/78 08/18/24 10:27 BMI result Body Mass Index 41.4 Absence of Cushingoid features. Absence of acromegalic features. Neck exam reveals nl size thyroid about 15 gms. No thyroid nodules palpable. No carotid bruits present. Lungs CTA. Heart S1 S2, Reg R/R. No M/R/ G. Skin exam reveals absence of vitiligo or acanthosis nigricans. Abdominal exam reveals Soft NT/ND with NA BS. No organomegaly present. Neck Other: . Extrem Other: Visual exam of foot performed. No ulcerations or open lesions. No onchomycosis, no callouses.Pulses 2 + distally Sensation intact to monofilament exam. Vibratory sensation sensed is intact with 128 Hz tuning fork Results AMB Hemoglobin A1c AMB Hemoglobin A1c 7.1 % Last Edit by SERA Davis on 08/18/24 10:49 Results Reviewed Results Reviewed: Laboratory Last Values Glucose (Clinic) 136 mg/dL (60-115) H 08/18/24 10:38 Assessment & Plan Assessment & Plan (1) Uncontrolled type 2 diabetes mellitus with hyperglycemia: Code(s): E11.65 - Type 2 diabetes mellitus with hyperglycemia Category: Medical Plan: Is a 58-year-old white female with a history of type 2 diabetes being treated with metformin, Ozempic, Jardiance and basal insulin with improved excellent glycemic control and no known microvascular or macrovascular complications. Plan is to continue the current regimen. Will check lipid profile. Will have patient follow up with Lakisha Evans NP in 4 months Orders: Orders Lipid Panel Today E11.65 - Type 2 diabetes mellitus with hyperglycemia AMB Hemoglobin A1c Today E11.65 - Type 2 diabetes mellitus with hyperglycemia Coding Level of Care Code Est Pt Level 4 (38204) Diagnoses Uncontrolled type 2 diabetes mellitus with hyperglycemia E11.65
[2024-08-18 10:27] VITALS: BP 132/78; PULSE 101; BMI 41.4
[2024-08-18 10:44] LABS: Glucose, Whole Blood 136 mg/dL (60-115)
== END 2024-08-18 10:49 | disposition home or self-care (01) ==
PROVIDERS: PCP Nurse Practitioner Adult Health; Visit Provider Internal Medicine Endocrinology, Diabetes & Metabolism
DX: E11.65 Type 2 diabetes mellitus with hyperglycemia (principal)
CPT/HCPCS: 99214

== ENCOUNTER → 2024-08-18 10:12 | Outpatient (BNVA) | payer OTHER, SELFPAY | PROVIDERS: PCP Nurse Practitioner Adult Health; Visit Provider Internal Medicine Endocrinology, Diabetes & Metabolism | DX: E11.65 Type 2 diabetes mellitus with hyperglycemia (principal); E78.5 Hyperlipidemia, unspecified; Z79.84 Long term (current) use of oral hypoglycemic drugs; Z79.4 Long term (current) use of insulin; Z83.3 Family history of diabetes mellitus | CPT/HCPCS: 82947; 83036 ==

== ENCOUNTER 2024-09-23 10:34 | Outpatient (AMB) | payer OTHER, SELFPAY ==
--- NOTE | 2024-09-23 11:12 | MHC.AMDMED ---
Intake Intake Visit Reasons: DM 30 MIN Eligibility Worker Required: No Accompanied by: Self / Same As Patient Allergies gluten Adverse Reaction (Unknown, Verified 08/18/24 10:29) Diarrhea, stomach bloating HPI Comprehensive Diabetes Asmnt Most Recent Diabetes Results: Microalb/Creat Ratio 8.2 ug/mg cr (<30) 10/02/23 Cholesterol 159 mg/dL (<200) 10/02/23 HDL Cholesterol 38 mg/dL (>40) L 10/02/23 Triglycerides 115 mg/dL (<150) 10/02/23 Creatinine 0.76 mg/dL (0.5-1.4) 07/28/24 Blood Urea Nitrogen 18 mg/dL (9-16) H 07/28/24 Sodium 140 mmol/L (135-145) 07/28/24 Potassium 4.1 mmol/L (3.3-5.1) 07/28/24 Chloride 104 mmol/L (96-108) 07/28/24 Carbon Dioxide 26 mmol/L (22-29) 07/28/24 Calcium 9.7 mg/dL (8.4-10.2) 07/28/24 [facility] Medical History Uncontrolled type 2 diabetes mellitus with hyperglycemia Surgical History Hx of surgical fusion joint History of colonoscopy Family History Mother Hypothyroidism Father Murmur Pacemaker Social History Alcohol intake: current Alcohol intake frequency: holidays/special occasions only Patient Tobacco Use Status: Former Tobacco user Assessment & Plan Assessment & Plan (1) Uncontrolled type 2 diabetes mellitus with hyperglycemia: Code(s): E11.65 - Type 2 diabetes mellitus with hyperglycemia Plan: Personal Continuous Glucose Monitor: Patients CGM information reviewed, Pt uses [employer], with smartphone raquel Sensor data: Hypoglycemia: ? 0% Hyperglycemia:? 25% Time in Range:? 75% Average glucose for the last 2 weeks? 197 mg/dL Patient's last A1c on 08/18/24 -7.1% Patient continues to maintain good glucose levels She is currently taking Ozempic 2 mg weekly Lantus 36 units b.i.d. Humalog 8 units before meals Metformin 1000 mg b.i.d. Waiting on prior authorization approval for Jardiance 25 mg daily No recommended changes of medications at this visit Discussed with patient using Stelo ogec-juq-kobzfgr CGM, since she is paying pxk-by-unqils for Nicole 3 sensors, patient given contact information Did discuss with patient may not be appropriate since she is currently using insulin and Stelo does not have low alerts Patient able to insert sensor independently at home without issue.? Portions of this note were created using voice recognition software, please excuse any words or phrases that may have been misinterpreted. Patient Instructions: Patient will follow-up with Diabetes Education nurse in 5 months Patient will contact Diabetes Education nurse with questions and concerns Coding Level of Care Code Est Pt Level 1 (86726) Diagnoses Uncontrolled type 2 diabetes mellitus with hyperglycemia E11.65
--- OUTSIDE RECORDS SUMMARY | 2024-09-23 11:41 | XMS_ITS | Continuity of Care Document ---
Author Organization [facility] Adult Address [address] [place] [address]- Care Team Providers Care Chief Controller Tower Name Role Phone Khris DEGROOT, Jef Primary Care Physician [place] [facility] [place] 07/27/24 - 08/26/[address] [address]- Encounter Type: Triage Allergies, Adverse Reactions, Alerts Substance Criticality Severity Reaction Reaction Severity Status Glutens diarrhea stomac h bloating Active Other Environmental Allergy Cat gut sutures-redness and swelling at site Active Immunizations Given and Recorded Vaccine Date Status Refusal Reason hepatitis B adult vaccine 11/18/23 Recorded hepatitis B adult vaccine 10/18/23 Recorded tetanus/diphtheria/pertussis, acel(Tdap) 10/18/23 Recorded tetanus/diphtheria/pertussis, acel(Tdap) 07/25/11 Given SARS-CoV-2(COVID-19)mRNA-LNP vac(pny202) 10/18/23 Recorded influenza virus vaccine, inactivated 1 [...] influenza virus vaccine, inactivated 07/25/11 Give n [id number] 12y+ bivalent booster vax 06/18/22 Recorded SARS-CoV-2 mRNA ([id number]) vax 11/23/21 Recorded SARS-CoV-2 (COVID-19) mRNA BNT-162b2 vac 07/08/21 Recorded SARS-CoV-2 (COVID-19) mRNA BNT-162b2 vac 11/24/20 Recorded SARS-CoV-2 (COVID-19) mRNA BNT-162b2 vac 11/03/20 Recorded Influenza Virus Vaccine (oldterm) 05/31/20 Recorde d 1Result Comment: [facility]: [id number] 2Result Comment: [facility] [id number] 3Result Comment: [facility]: [id number] 4Result Comment: [id number] Medications atorvastatin 20 mg oral tablet 1 tablet, By Mouth, Daily, # 30 tablet, 5 Refills, Maintenance, 03/07/24 12:13:00 PM EDT, [facility], 160, cm, 10/08/23 10:38:00 EST, Height, 110.4, kg, 06/18/23 19:23:00 EDT, Dry Weight Start Date: 03/07/24 Status: Ordered Quantity: 30.0 Unit: tablet Repeat number: 6 Humalog Kwik Pen 100 units/mL subcutaneous injection = 5 units, Subcutaneous Injection, Daily at supper, # 3 mL, 6 Refills, Maintenance, 01/17/22 4:02:00PM EDT, Solution, [facility], 160.5, cm, 01/17/22 9:25:00 EDT, Height Start Date: 01/17/22 Status: Ordered Quantity: 3.0 Unit: mL Repeat number: 7 Indication: Type 2 diabetes mellitus without complications ibuprofen 800 mg oral tablet 1 tablet = 800 mg, By Mouth, Every 8 hours, # 90 tablet, 0 Refills, Maintenance, 04/26/15 8:14:04 AMEDT, Tablet, [facility] 5278 Start Date: 04/26/15 Stop Date: 05/26/15 Status: Ordered Quantity: 90.0 Unit: tablet Repeat number: 1 Lantus Solostar Pen 100 units/mL subcutaneous solution = 50 units, Subcutaneous Injection, 2 times a day, # 90 mL, 0 Refills, Maintenance, 12/19/22 5:42:00PM EDT, [facility], 157, cm, 10/06/22 12:46:00 EST, Height, 109.6, kg, 01/31/22 9:32:00 EDT, Dry Weight Start Date: 12/19/22 Status: Ordered Quantity: 90.0 Unit: mL Repeat number: 1 metFORMIN 1000 mg oral tablet 1 tablet, By Mouth, 2 times a day, # 180 tablet, 1 Refills, Maintenance, 03/10/24 2:21:00 PM EDT, [facility], 160, cm, 10/08/23 10:38:00 EST, [...] 10/09/23 Status: Ordered Repeat number: 1 Pen [place], 31 G x 5 mm BD Ultra [...] 1 Refills, Maintenance, 01/28/24 10:34:00 AM EDT, [facility], 160, cm, 10/08/23 10:38:00 EST, Height, 110.4, kg, 06/18/23 19:23:00 EDT, Dry Weight Start Date: 01/28/24 Status: Ordered Quantity: 90.0 Unit: tablet Repeat number: 2 Victoza 18 mg/3 mL subcutaneous solution = 1.8 mg, Subcutaneous Injection, Daily, # 9 mL, 0 Refills, Maintenance, 01/29/23 12:12:00 PM EDT, Solution, [facility], 157, cm, 10/06/22 12:46:00 EST, Height, 109.6, kg, 01/31/22 9:32:00 EDT, Dry Weight Start Date: 01/29/23 Status: Ordered Quantity: 9.0 Unit: mL Repeat number: 1 Indication: Type 2 diabetes mellitus without complications Vitamin D3 50,000 intl units oral capsule 1 capsule, By Mouth, Every week, # 13 capsule, 3 Refills, Maintenance, 07/28/24 10:43:00 AM EST, [facility], 160, cm, 10/08/23 10:38:00 EST, Height, 110.4, kg, 06/18/23 19:23:00 EDT, Dry Weight Start Date: 07/28/24 Status: Ordered Quantity: 13.0 Unit: capsule Repeat number: 4 Problem List Condition Confirmation Course Effective Dates [...] Team Personnel Name: Jef Pinedo MD Position: [facility] Physician - Primary Care Member Role: PCP Address: [address] [place] [phone]- Telecom: Name: [place] Position: [facility] Outreach Member Role: [employer] Consult[employer] Physician Care Team Related Persons Name: VIET SNIDER Name: LEILANI TIJERINA Insurance Providers Guarantor name: [employer] Information #: 1 Payer: [facility] Member Number: NA Policy Number: NA Group Number: NA
== END 2024-09-23 11:14 | disposition home or self-care (01) ==
PROVIDERS: PCP Nurse Practitioner Adult Health; Visit Provider Registered Nurse Diabetes Educator
DX: E11.65 Type 2 diabetes mellitus with hyperglycemia (principal)

== ENCOUNTER → 2024-09-23 10:34 | Outpatient (BNVA) | payer OTHER, SELFPAY | PROVIDERS: PCP Nurse Practitioner Adult Health; Visit Provider Registered Nurse Diabetes Educator | DX: E11.65 Type 2 diabetes mellitus with hyperglycemia (principal) | CPT/HCPCS: 99211 ==

== ENCOUNTER 2024-12-17 09:30 | Outpatient (AMB) | payer OTHER, SELFPAY ==
--- NOTE | 2024-12-17 09:39 | A.OFFVIS_ITS ---
Vital Signs 12/17/24 09:40 Height 5 ft 2 in Weight 227 lb 1.218 oz BMI 41.5 BP 116/72 Blood Pressure Location Rt brachial Position Sitting Pulse 89 Pulse Source Pulse Oximeter Pulse Oximetry (%) 98 Oxygen Delivery Method Room Air Intake Visit Reasons: T2DM Intake Note: Patient presents today for a follow-up on Type 2 Diabetes Mellitus: Last Diabetic eye exam was on: 02/25/2024 Last Podiatry exam was on: Has an appt every 3 months Most recent HbA1c: 7.3% 12/02/2024, blood work drawn at [facility] Random Glucose- 156 mg/dL, Today Infant Teacher Required: No Accompanied by: Self / Same As Patient Allergies gluten Adverse Reaction (Unknown, Verified 12/17/24 09:40) Diarrhea, stomach bloating HPI Comments Details: 57 YO F who is seen in f/u for T2DM at the request of PCP. She was last seen by Dr. Goldstein in July. She had recent A1c in November of 7.7%. Initially diagnosed with T2DM in 7 yrs . Saw navi at [facility] Dr. Cook Was initially started on treatment with metformin .Took Trulicity and had diaarhea. Was on sample Mounjaro for approximately 3 months in the past and glucose numbers were much better. Current regimen . metformin 1000 mg BID Ozempic 2 mg Qwkly Lantus 36 units BID Humalog 8 units tid Jardiance 25 mg QD Family history of T2DM in brother and grandmother . Has eyes checked yearly, last eye exam 02/12/2024 , denies retinopathy. Denies neuropathy, sees podiatry. Denies nephropathy, on ALEXANDRA/ARB. 11/2024 EGFR 103 microalbumin 02/17 6.0 Has HLD, on statin. ldl 104 11/2024 Denies CAD. [facility] Medical History Uncontrolled type 2 diabetes mellitus with hyperglycemia Surgical History Hx of surgical fusion joint History of colonoscopy Family History Mother Hypothyroidism Father Murmur Pacemaker Social History Alcohol intake: current Alcohol intake frequency: holidays/special occasions only Patient Tobacco Use Status: Former Tobacco user Physical Exam Vital Signs: Last Vital Signs Pulse 89 12/17/24 09:40 BP 116/72 12/17/24 09:40 Pulse Ox 98 12/17/24 09:40 Oxygen Delivery Method Room Air 12/17/24 09:40 BMI result Body Mass Index 41.5 Const Other: Absence of Cushingoid features. Absence of acromegalic features. Neck exam reveals nl size thyroid about 15 gms. No thyroid nodules palpable. No carotid bruits present. Lungs CTA. Heart S1 S2, Reg R/R. No M/R G. Skin exam reveals absence of vitiligo or acanthosis nigricans. No edema Visual exam of foot performed. No ulcerations or open lesions. No inter digit maceration or fissuring.+ onychomycosis, well trimmed, callous great toe trimmed well. Sensation intact to monofilament exam. Vibratory sensation is no rmal with 128 Hz tuning fork. Results Reviewed Results Reviewed: Laboratory Last Values Glucose (Clinic) 156 mg/dL (60-115) H 12/17/24 09:53 Assessment & Plan Assessment & Plan (1) Uncontrolled type 2 diabetes mellitus with hyperglycemia: Code(s): E11.65 - Type 2 diabetes mellitus with hyperglycemia Category: Medical Plan: This is a 59-year-old white female with a history of type 2 diabetes being treated with metformin, Ozempic, Jardiance and basal/bolus insulin with failure to achieve target A1c and no known microvascular or macrovascular complications. Continue all dosing of medication. We will write prescription for Mounjaro 2.5 mg weekly instead of ozempic. She has been on a sample in the past for 3 months and add much better glycemic control. She now has failure to achieve target A1c of 7% despite basal bolus insulin metformin Ozempic and Jardiance. A change to Mounjaro may facilitate getting her A1c down to 7%. The patient had an opportunity to ask questions regarding treatment plan. The patient expressed understanding and agreement with the above treatment plan. The patient is aware they should contact our office by phone for worsening glucose readings or for any low blood sugars which may warrant a change in diabetes medication. Compliance is encouraged with medications and any followup testing/consults which may have been ordered. Medications: New tirzepatide (Mounjaro) 2.5 mg (0.5 mL) subcut QWEEK 4 weeks 2 mL 3RF Refilled insulin lispro (Humalog KwikPen (U-100) Insulin) 8 units (0.08 mL) subcut TID 30 mL 5RF Discontinued blood-glucose sensor (Dexcom G7 Sensor device) Discontinued Reason: Doctor's Order As directed 3 ea 8RF Patient Instructions: Check your feet daily looking for any signs of infection, drainage, redness, ulceration and seek medical attention if this occurs. Break in shoes gradually and do not wear open-toed shoes or walk stocking footed or barefooted. The patient was counseled to achieve a target A1C of 7% (154 avg). Fasting blood sugars should be 90-130 in the morning and less than 180 two hours after meals. Reviewed the relationship between poor diabetic control and the development of complications. Coding Level of Care Code Est Pt Level 4 (03429) Complex EM visit Add On G2211 Diagnoses Uncontrolled type 2 diabetes mellitus with hyperglycemia E11.65 Time Spent (min) 30 Comment Time spent reviewing labs/provider notes, face to face, chart doc
[2024-12-17 09:40] VITALS: BP 116/72; PULSE 89; O2SAT 98; BMI 41.5
[2024-12-17 10:00] LABS: Glucose, Whole Blood 156 mg/dL (60-115)
== END 2024-12-17 10:21 | disposition home or self-care (01) ==
LOC: HO.ENCR 09:30
PROVIDERS: PCP Nurse Practitioner Adult Health; Visit Provider Nurse Practitioner Adult Health
DX: E11.65 Type 2 diabetes mellitus with hyperglycemia (principal)
CPT/HCPCS: 99214

== ENCOUNTER → 2024-12-17 09:30 | Outpatient (BNVA) | payer OTHER, SELFPAY | PROVIDERS: PCP Nurse Practitioner Adult Health; Visit Provider Nurse Practitioner Adult Health | DX: E11.65 Type 2 diabetes mellitus with hyperglycemia (principal); Z79.4 Long term (current) use of insulin; Z79.84 Long term (current) use of oral hypoglycemic drugs; Z79.899 Other long term (current) drug therapy | CPT/HCPCS: 82947 ==

== ENCOUNTER 2025-03-04 08:20 | Outpatient (AMB) | payer OTHER, SELFPAY ==
--- NOTE | 2025-03-04 08:22 | A.OFFVIS_ITS ---
Vital Signs 03/04/25 08:24 Height 5 ft 2 in Weight 224 lb 13.944 oz BMI 41.1 BP 124/76 Blood Pressure Location Rt brachial Position Sitting Pulse 86 Pulse Source Pulse Oximeter Pulse Oximetry (%) 96 Oxygen Delivery Method Room Air Intake Visit Reasons: T2DM Intake Note: Patient presents today for a follow-up on Type 2 Diabetes Mellitus: Last Diabetic eye exam was on: 02/25/2024 Last Podiatry exam was on: Has an appt every 3 months Most recent HbA1c: 7.3%, 03/04/2025 Random Glucose- 169 mg/dL, Today Services Coordinator Required: No Accompanied by: Self / Same As Patient Allergies gluten Adverse Reaction (Unknown, Verified 03/04/25 08:23) Diarrhea, stomach bloating HPI Comments Details: 59 YO F who is seen in f/u for T2DM at the request of PCP. She was last seen 12/17/24. She had recent A1c in November of 7.7%. Today her A1C was 7.3%. Initially diagnosed with T2DM in 7 yrs . Saw navi at [facility] Dr. Cook Was initially started on treatment with metformin .Took Trulicity and had diarrhea. Was on sample Mounjaro for approximately 3 months in the past and glucose numbers were much better. She has been progressively increasing the Mounjaro and it has helped lower the A1C. Current regimen Metformin 1000 mg BID Lantus 36 units BID Humalog 8 units with supper, with lunch if having more than a salad. Does not eat breakfast. Jardiance 25 mg QD mounjaro 7.5mg weekly Family history of T2DM in brother and grandmother . Has eyes checked yearly, last eye exam 01/2024 , denies retinopathy. she will make appt Denies neuropathy, sees podiatry. Denies nephropathy, on ALEXANDRA/ARB. 11/2024 EGFR 103 microalbumin 02/17 6.0 Has HLD, on statin. ldl 104 11/2024 Denies CAD no chest pain, dyspnea or claudication walks every day PFSH Medical History Uncontrolled type 2 diabetes mellitus with hyperglycemia Surgical History Hx of surgical fusion joint History of colonoscopy Family History Mother Hypothyroidism Father Murmur Pacemaker Social History Alcohol intake: current Alcohol intake frequency: holidays/special occasions only Patient Tobacco Use Status: Former Tobacco user Physical Exam Vital Signs: Last Vital Signs Pulse 86 03/04/25 08:24 Pulse Ox 96 03/04/25 08:24 Oxygen Delivery Method Room Air 03/04/25 08:24 BMI result Body Mass Index 41.1 Const Other: Absence of Cushingoid features. Absence of acromegalic features. Neck exam reveals nl size thyroid about 15 gms. No thyroid nodules palpable. No carotid bruits present. Lungs CTA. Heart S1 S2, Reg R/R. No M/R G. Skin exam reveals absence of vitiligo or acanthosis nigricans. No edema Visual exam of foot performed. No ulcerations or open lesions. No inter digit maceration or fissuring. + onychomycosis with thickening, yellowing of nail bed, well trimmed no callouses. Sensation intact to monofilament exam. Vibratory sensation is normal with 128 Hz tuning fork. Office Procedures Glucose Monitoring Details Details: see [facility] [id number] - Glucose monitoring, continuous-physician I&R Procedure code (CPT) selection complete Results AMB Hemoglobin A1c AMB Hemoglobin A1c 7.3 % Last Edit by SERA Singer on 03/04/25 08:38 Results Reviewed Results Reviewed: Laboratory Last Values Glucose (Clinic) 169 mg/dL (60-115) H 03/04/25 08:30 Hgb A1c (Clinic) 7.3 % (4.0-6.0) H 03/04/25 08:33 Assessment & Plan Assessment & Plan (1) Uncontrolled type 2 diabetes mellitus with hyperglycemia: Code(s): E11.65 - Type 2 diabetes mellitus with hyperglycemia Category: Medical Plan: 59-year-old type 2 diabetic with no known macro/macrovascular complications with improving A1c now down to 7.3%. Increase Mounjaro to 10 mg. Increase Lantus to 40 units b.i.d. Continue metformin and Jardiance Continue Humalog 8 units with lunch if eating more than a salad, 8 units with supper She was asked to check her sugars 2 hours postprandial and if running higher than 180 consistently she can increase the Humalog by 2-4 units.. If you develop significant illness with vomiting or fever keep hydrated and temporarily stop metformin. Notify Endocrine Clinic if sugars are over 250. Stop metformin prior to surgery or tests in which dye is injected in the body. Orders: Orders AMB Hemoglobin A1c Today E11.65 - Type 2 diabetes mellitus with hyperglycemia AMB Glucose Monitoring Today E11.65 - Type 2 diabetes mellitus with hyperglycemia Medications: New Mounjaro (tirzepatide) 10 mg (0.5 mL) subcut QWEEK 6 mL 3RF 84 days NS Changed From insulin glargine (Lantus Solostar U-100 Insulin) 36 units (0.36 mL) subcut BID 90 days 64.8 mL 4RF To insulin glargine (Lantus Solostar U-100 Insulin) 40 units (0.4 mL) subcut BID 72 mL 4RF 90 days From insulin lispro (Humalog KwikPen (U-100) Insulin) 8 units (0.08 mL) subcut TID 30 mL 5RF To insulin lispro (Humalog KwikPen (U-100) Insulin) 8 units (0.08 mL) subcut BID 15 mL 5RF 90 days From blood-glucose sensor (FreeStyle Nicole 3 Plus Sensor device) As directed every 15 days 2 ea 11RF E11.65 - Type 2 diabetes mellitus with hyperglycemia To FreeStyle Nicole 3 Plus Sensor (blood-glucose sensor) As directed every 15 days 6 ea 3RF NS E11.65 - Type 2 diabetes mellitus with hyperglycemia From empagliflozin (Jardiance) 25 mg PO DAILY 90 days 90 tabs 4RF To Jardiance (empagliflozin) 25 mg PO DAILY 90 tabs 1RF 90 days NS Discontinued Mounjaro (tirzepatide) Discontinued Reason: Doctor's Order 7.5 mg (0.5 mL) subcut QWEEK 28 days 2 mL 3RF NS Patient Instructions: The patient was counseled to achieve a target A1C of 7% (154 avg). Fasting blood sugars should be 90-130 in the morning and less than 180 two hours after meals. Reviewed the relationship between poor diabetic control and the development of complications. Take 15 carb carbohydrate grams to treat a low sugar (3-4 glucose tablets, half a glass of juice or 15 carbohydrate grams of soft candy such as gummie snacks). Recheck your sugar in 15 minutes and re-treat again with 15 carbohydrate grams if low or still with symptoms. Do not drive a car or operate machinery if you d o not know what your blood sugar is, if it is low or in excess of 300. Check your feet daily looking for any signs of infection, drainage, redness, ulceration and seek medical attention if this occurs. Break in shoes gradually and do not wear open-toed shoes or walk stocking footed or barefooted. Coding Level of Care Code Est Pt Level 4 (54160) Complex EM visit Add On G2211 Diagnoses Uncontrolled type 2 diabetes mellitus with hyperglycemia E11.65 CPT Codes Details - CPT: 95681 - Glucose monitoring, continuous-physician I&R ([id number]) Time Spent (min) 30 Comment Time spent reviewing labs/provider notes, face to face, chart doc
[2025-03-04 08:24] VITALS: BP 124/76; PULSE 86; O2SAT 96; BMI 41.1
[2025-03-04 08:34] LABS: Glucose, Whole Blood 169 mg/dL (60-115)
== END 2025-03-04 08:56 | disposition home or self-care (01) ==
LOC: HO.ENCR 08:21
PROVIDERS: PCP Nurse Practitioner Adult Health; Visit Provider Nurse Practitioner Adult Health
DX: E11.65 Type 2 diabetes mellitus with hyperglycemia (principal); Z79.4 Long term (current) use of insulin
CPT/HCPCS: 95251; 99214

== ENCOUNTER → 2025-03-04 08:20 | Outpatient (BNVA) | payer OTHER, SELFPAY | PROVIDERS: PCP Nurse Practitioner Adult Health; Visit Provider Nurse Practitioner Adult Health | DX: E11.65 Type 2 diabetes mellitus with hyperglycemia (principal) | CPT/HCPCS: 82947; 83036 ==

== ENCOUNTER 2025-03-19 06:56 | Outpatient (AMB) | payer OTHER, SELFPAY ==
--- NOTE | 2025-03-19 07:29 | A.OFFVIS_ITS ---
Intake Intake Visit Reasons: 60 min Allergies gluten Adverse Reaction (Unknown, Verified 03/04/25 08:23) Diarrhea, stomach bloating HPI Comprehensive Diabetes Asmnt Most Recent Diabetes Results: 2 Microalb/Creat Ratio, (<30) 8.2 ug/mg cr 10/02/23 Cholesterol, (<200) 159 mg/dL 10/02/23 HDL Cholesterol, (>40) 38 mg/dL L 10/02/23 Triglycerides, (<150) 115 mg/dL 10/02/23 Creatinine, (0.5-1.4) 0.76 mg/dL 07/28/24 BUN, (9-16) 18 mg/dL H 07/28/24 Sodium, (135-145) 140 mmol/L 07/28/24 Potassium, (3.3-5.1) 4.1 mmol/L 07/28/24 Chloride, (96-108) 104 mmol/L 07/28/24 Carbon Dioxide, (22-29) 26 mmol/L 07/28/24 Calcium, (8.4-10.2) 9.7 mg/dL 07/28/24 [facility] Medical History Uncontrolled type 2 diabetes mellitus with hyperglycemia Surgical History Hx of surgical fusion joint History of colonoscopy Family History Mother Hypothyroidism Father Murmur Pacemaker Social History Alcohol intake: current Alcohol intake frequency: holidays/special occasions only Patient Tobacco Use Status: Former Tobacco user Assessment & Plan Assessment & Plan (1) Uncontrolled type 2 diabetes mellitus with hyperglycemia: Code(s): E11.65 - Type 2 diabetes mellitus with hyperglycemia Plan: Personal Continuous Glucose Monitor: Patients CGM information reviewed, Pt uses Atlas Powered with phone raquel Sensor data: Patient reports after her 's hip replacement in August 2024 her glucose numbers increased due to stress. Patient's last A1c on 03/04/2025 7.3%. Patient has started Mounjaro August 2024, is now up to 10 mg weekly. Since visit on 03/04/2025 she believes her glucose numbers have improved based on sensor data A1c for the past 14 days estimate is 7% Reviewed with patient the importance of eating small high-fiber low carb meals, when using GLP 1. If you overeat or have high carb, high fat meals with GLP 1 you can experience GI side effects Reviewed topic below: How diet effects glucose Eating 3 balanced meals a day with small, healthy snacks between meals Review food groups Carbohydrates: What is a carbohydrate/Which food/food groups are considered carbohydrates Effect of carbohydrates on blood glucose Portion sizes Patient able to insert sensor independently at home without issue.? Portions of this note were created using voice recognition software, please excuse any words or phrases that may have been misinterpreted. Patient Instructions: Patient will follow-up with Diabetes Education as needed Coding Level of Care Code Est Pt Level 1 (23105) Diagnoses Uncontrolled type 2 diabetes mellitus with hyperglycemia E11.65
== END 2025-03-19 08:56 | disposition home or self-care (01) ==
LOC: HO.ENCR 06:57
PROVIDERS: PCP Nurse Practitioner Adult Health; Visit Provider Registered Nurse Diabetes Educator
DX: E11.65 Type 2 diabetes mellitus with hyperglycemia (principal)
CPT/HCPCS: 99211

== ENCOUNTER 2025-06-01 09:55 | Outpatient (AMB) | payer OTHER, SELFPAY ==
[2025-06-01 09:59] VITALS: BP 132/70; BMI 40.9
--- NOTE | 2025-06-01 09:59 | A.OFFVIS_ITS ---
Vital Signs 06/01/25 09:59 Height 5 ft 2 in Weight 223 lb 8.78 oz BMI 40.9 BP 132/70 Blood Pressure Location Lt brachial Position Sitting Intake Visit Reasons: T2DM Intake Note: Patient present today for Type 2 Diabetes Mellitus Last Diabetic eye exam: Last exam was on 2023 but is unsure of the exact month Last Podiatry Visit: 02/2025 Random Glucose: 133 mg/dl HgA1C: Patient refused to have A1c because she had it done at [facility]. [facility] results HgA1C 7.2% on 05/21/25 Server Cashier Required: No Accompanied by: Self / Same As Patient Allergies gluten Adverse Reaction (Unknown, Verified 06/01/25 10:04) Diarrhea, stomach bloating Medication List - Last Reconciled 06/01/25 by Ana Araujo PA-C atorvastatin 20 mg PO DAILY FreeStyle Nicole 3 Plus Sensor (blood-glucose sensor) As directed every 15 days NS insulin glargine (Lantus Solostar U-100 Insulin) 40 units (0.4 mL) subcut BID 90 days insulin lispro (Humalog KwikPen (U-100) Insulin) 8 units (0.08 mL) subcut BID 90 days Jardiance (empagliflozin) 25 mg PO DAILY 90 days NS metformin 1,000 mg PO BID 30 days tirzepatide (Mounjaro) 12.5 mg (0.5 mL) subcut QWEEK valsartan 320 mg PO DAILY 90 days HPI HPI T2DM: Details: Patient is a 59 year old female who presents today for a diabetic consultation. She previously followed with my colleague. Endo: Dm-most recent A1c was 7.2. She is currently on Lantus 40 units twice a day, Humalog 8 units twice a day, Jardiance 25 mg daily, metformin 1000 mg twice a day and Mounjaro 10 mg weekly -she is doing very well with Mounjaro and would like to increase this after her aortic valve replacement surgery on 06/09. -previously tried Trulicity but felt sick CGM-usage 97%, average glucose 147. G mi 6.8%. Very hyperglycemic 0%, hyperglycemic 15%, in range 85%, 0% hypoglycemia CV: Blood pressure today in the office is 132/70. she is on valsartan 320 mg daily. Cholesterol is managed with atorvastatin 40 mg. She has an aortic valve replacement scheduled 06/09. [facility] Medical History Uncontrolled type 2 diabetes mellitus with hyperglycemia Surgical History Hx of surgical fusion joint History of colonoscopy Family History Mother Hypothyroidism Father Murmur Pacemaker Social History Alcohol intake: current Alcohol intake frequency: holidays/special occasions only Patient Tobacco Use Status: Former Tobacco user Physical Exam Vital Signs: BMI result Body Mass Index 40.9 Const Orientation/consciousness: patient oriented x3 HEENT Ears: hearing grossly normal bilaterally Neck Thyroid: Thyroid normal Lymphatic: no lymphadenopathy noted Resp Auscultation: clear to auscultation bilaterally Cardio Rate: regular rate Rhythm: regular rhythm Heart sounds: S1 normal heart sound present, S2 normal heart sound present and Murmur heart sound present Skin General skin exam: no rashes or lesions noted Neuro General: patient oriented x3, gait normal and no focal motor deficits Results Reviewed Results Reviewed: Laboratory Last Values Glucose (Clinic) 133 mg/dL (60-115) H 06/01/25 10:07 Assessment & Plan Assessment & Plan (1) Uncontrolled type 2 diabetes mellitus with hyperglycemia: Code(s): E11.65 - Type 2 diabetes mellitus with hyperglycemia Category: Medical Plan: We will plan for her to continue her current diabetic regimen following the aortic valve replacement as she is currently holding her Mounjaro. She will continue with her regimen for 2 weeks to make sure she is tolerating everything okay and has no nausea or upset stomach. The plan will then be: increase mounjaro to 12.5 mg weekly continue metformin 1000 mg bid continue jardiance 25 mg daily reduce lantus to 35 units bid Continue NovoLog as directed (2) HTN (hypertension): Code(s): I10 - Essential (primary) hypertension Category: Medical Plan: WNL. Continue current regimen and follow up with Cardiology (3) HLD (hyperlipidemia): Code(s): E78.5 - Hyperlipidemia, unspecified Category: Medical Plan: As above Medications: New tirzepatide (Mounjaro) 12.5 mg (0.5 mL) subcut QWEEK 6 mL 2RF Discontinued Mounjaro (tirzepatide) Discontinued Reason: Doctor's Order 10 mg (0.5 mL) subcut QWEEK 84 days 6 mL 3RF NS Coding Level of Care Code Est Pt Level 4 (46156) Complex EM visit Add On G2211 Diagnoses Uncontrolled type 2 diabetes mellitus with hyperglycemia E11.65 HTN (hypertension) I10 HLD (hyperlipidemia) E78.5
[2025-06-01 10:12] LABS: Glucose, Whole Blood 133 mg/dL (60-115)
== END 2025-06-01 10:35 | disposition home or self-care (01) ==
LOC: HO.ENCR 09:56
PROVIDERS: PCP Nurse Practitioner Adult Health; Visit Provider Physician Assistant
DX: E11.65 Type 2 diabetes mellitus with hyperglycemia (principal); I10 Essential (primary) hypertension; E78.5 Hyperlipidemia, unspecified

== ENCOUNTER → 2025-06-01 09:55 | Outpatient (BNVA) | payer OTHER, SELFPAY | PROVIDERS: PCP Nurse Practitioner Adult Health; Visit Provider Physician Assistant | DX: E11.65 Type 2 diabetes mellitus with hyperglycemia (principal); I10 Essential (primary) hypertension; E78.5 Hyperlipidemia, unspecified; Z79.899 Other long term (current) drug therapy | CPT/HCPCS: 82947 ==